=== PATIENT | male | born 1935 | race Caucasian/White ===

== ENCOUNTER 2017-08-15 17:34 | Outpatient (CLI) | payer OTHER ==
[2013-04-27 11:39] VITALS: BMI 31.6
[2017-08-15] MEDS ORDERED: VITAMIN K ORAL SOLUTION 5 MG/5 ML PO STA (18:10)
[2017-08-15] MEDS ORDERED: VITAMIN K IM STA (18:16)
== END 2017-08-15 17:35 | disposition home or self-care (01) ==
LOC: LAB 17:34 → OUTPT 17:35
PROVIDERS: ATTEND Family Medicine
DX: R79.1 Abnormal coagulation profile (principal)
CPT/HCPCS: 96372

== ENCOUNTER 2017-08-16 09:44 | Outpatient (CLI) ==
[2013-04-27 11:39] VITALS: BMI 31.6
[2017-08-16] MEDS ORDERED: VITAMIN K SUBCUT STA (10:09)
[2017-08-16 10:19] VITALS: BP 134/78; TEMP 97.9
== END 2017-08-16 10:32 | disposition home or self-care (01) ==
LOC: OPMED 09:44
PROVIDERS: ATTEND Family Medicine
DX: Z79.01 Long term (current) use of anticoagulants (principal)
CPT/HCPCS: 96372

== ENCOUNTER 2017-09-01 18:29 | Emergency (ER) ==
[2017-09-01 18:42] VITALS: BP 147/77; TEMP 98.4; BMI 40.1
[2017-09-01] MEDS ORDERED: DEMEROL 25 MG/ML VIAL IM STA (20:09)
[2017-09-01] MEDS ORDERED: ZOFRAN 4 MG/2 ML IM STA (20:09)
--- NOTE | 2017-09-01 20:12 | ED.PDOC ---
General ED Provider: Dr. ROSIE MARTINEZ Chief Complaint: Elbow Pain/Injury Stated Complaint: Patient fell at home yesterday, landed on the elbow, ever since hurting in the elbow. was not dizzi or Light headed. Time Seen by Physician: 20:10 Mode of Arrival: Walk-In Information Source: Patient Primary Care Provider: GABRIELA ALDRIDGE Nursing and Triage Documentation Reviewed and Agree: Yes Reviewed sepsis parameters & appropriate labs ordered?: No System Inflammatory Response Syndrome: Not Applicable Sepsis Protocol: For patient's 13 years and over: Temp is 96.8 and below OR 101 and greater Pulse >90 BPM Resp >20/minute Acutely Altered Mental Status Are patient's symptoms suggestive of a new infection, such as: -Pneumonia -Skin, Soft Tissue -Endocarditis -UTI -Bone, Joint Infection -Implantable Device -Acute Abdominal Infection -Wound Infection -Meningitis -Blood Stream Catheter Infection -Unknown Musculoskeletal Complaint Exam - Elbow Pain Complaint/Exam Mechanism of Injury: Reports: Trauma Symptoms Are: Still present Onset of Pain: Reports: Immediate Initial Severity: Moderate Current Severity: Moderate Location: Reports: Discrete Character: Reports: Aching, Throbbing Alleviating: Reports: None Aggravating: Reports: None Associated Signs and Symptoms: Reports: Swelling. Denies: Redness, Bruising, Fever, Weakness, Numbness, Tingling Related Surgical History: Reports: None Elbow Findings: Present: Swelling. Absent: Ecchymosis, Abnormal contour, Ligamentous instability Tenderness: Present: Lateral Condyle Limited Range of Motion: Present: Flexion, Extension, Pronation Differential Diagnoses: Closed Fracture, Sprain Review of Systems - Review Of Systems Constitutional: Reports: No symptoms Eyes: Reports: No symptoms Ears, Nose, Mouth, Throat: Reports: No symptoms Respiratory: Reports: No symptoms Cardiac: Reports: No symptoms GI: Reports: No symptoms : Reports: No symptoms Musculoskeletal: Reports: Joint pain, Joint swelling, Muscle pain Skin: Reports: No symptoms Neurological: Reports: No symptoms Endocrine: Reports: No symptoms Hematologic/Lymphatic: Reports: No symptoms All Other Systems: Reviewed and Negative Past Medical History - Past Medical History Previously Healthy: Yes Endocrine: Reports: DM 2 Cardiovascular: Reports: CAD, Hypertension, CHF Respiratory: Reports: None Hematological: Reports: None Gastrointestinal: Reports: None Genitourinary: Reports: None Neuro/Psych: Reports: None Musculoskeletal: Reports: Arthritis, Gout Cancer: Reports: None - Surgical History General 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) - Family History Family History: Reports: None - Social History Smoking Status: Never smoker Hx Substance Use: No Alcohol Screening: None Physical Exam - Physical Exam Appearance: Well-appearing, No pain distress, Well-nourished Eyes: JIMENA, EOMI, Conjunctiva clear ENT: Ears normal, Nose normal, Oropharynx normal Respiratory: Airway patent, Breath sounds clear, Breath sounds equal, Respirations nonlabored Cardiovascular: RRR, Pulses normal, No rub, No murmur GI/: Soft, Nontender, No masses, Bowel sounds normal, No Organomegaly Musculoskeletal: ROM intact, No edema, No calf tenderness, Limited ROM, Limited strength Skin: Warm, Dry, Normal color Neurological: Sensation intact, Motor intact, Reflexes intact, Cranial nerves intact, Alert, Oriented Psychiatric: Affect appropriate, Mood appropriate Interpretation - Radiology Interpretation Radiology Interpretation By: Radiologist Radiology Results: Positive (radial head fracure) Critical Care Note - Critical Care Note Total Time (mins): 25 Course - Course Orders, Labs, Meds: Orders Category Date Time Status Meperidine HCl/Pf [Demerol 25 mg/ml Vial] MEDS 09/01/17 20:09 Discontinued 25 mg IM ONCE STA Ondansetron HCl/Pf [Zofran 4 mg/2 ml] MEDS 09/01/17 20:09 Discontinued 4 mg IM ONCE STA ELBOW, RIGHT MIN 3 VIEWS Stat RADS 09/01/17 20:05 Completed FOREARM, RIGHT 2 VIEWS Stat RADS 09/01/17 20:09 Completed Medications Discontinued Medications Generic Name Dose Route Start Last Admin Trade Name Kingsleyq PRN Reason Stop Dose Admin Meperidine HCl 25 mg 09/01/17 20:09 09/01/17 20:32 Demerol 25 Mg/Ml Vial IM 09/01/17 20:10 25 mg ONCE STA Administration Ondansetron HCl 4 mg 09/01/17 20:09 09/01/17 20:31 Zofran 4 Mg/2 Ml IM 09/01/17 20:10 4 mg ONCE STA Administration Vital Signs: Temp Pulse Resp BP Pulse Ox 09/01/17 18:33 98.4 F 73 20 147/77 H 93 L Departure - Departure Time of Disposition: 21:24 Disposition: HOME SELF-CARE Discharge Problem: Radial head fracture Qualifiers: Encounter type: initial encounter Fracture type: closed Fracture alignment: nondisplaced Laterality: right Qualified Code(s): S52.124A - Nondisplaced fracture of head of right radius, initial encounter for closed fracture Instructions: Arm Fracture in Adults (ED) Condition: Stable Pt referred to PMD for follow-up: Yes IPMP verified?: No Additional Instructions: Rest needs f/u with orthopedic Prescriptions: Hydrocodone/Acetaminophen [Dupont 5-325 Tablet] 1 tab PO TID PRN #10 tablet PRN Reason: PAIN Allergies/Adverse Reactions: Allergies Sulfa (Sulfonamide Antibiotics) Adverse Reaction (Verified 09/01/17 18:43) Home Medications: Ambulatory Orders Bumetanide [Bumex] 0.5 mg PO QDAC 01/27/13 Cyanocobalamin (Vitamin B-12) [Vitamin B-12] 2,000 mcg PO DAILY 01/27/13 Docusate Sodium [Colace] 100 mg PO BID 01/27/13 Febuxostat [Uloric] 40 mg PO DAILY 01/27/13 Metoprolol Tartrate [Lopressor] 25 mg PO BID 01/27/13 Multivitamin with Minerals [Multiple Vitamin] 1 each PO BID 01/27/13 Clindamycin HCl [Cleocin] 1 cap PO Q6H 04/27/13 Pantoprazole Sodium [Protonix] 20 mg PO DAILY 04/27/13 Hydrocodone/Acetaminophen [Dupont 5-325 Tablet] 1 tab PO TID PRN #10 tablet 09/01 Lisinopril 10 mg PO DAILY 09/01/17 Metformin HCl 500 mg PO DAILY 09/01/17 Disposition Discussed With: Patient, Family
--- NOTE | 2017-09-01 21:09 | DI ---
EXAM: Three-view right elbow COMPARISON: None HISTORY: Trauma and pain FINDINGS: There is some cortical irregularity seen involving the radial head most likely due to nondi splaced fracture. True lateral was not able to be obtained. There is no dislocation. There is fair ly advanced degenerative change. There is no soft tissue swelling. No unexpected radio-opaque foreign bodies. IMPRESSION: Nondisplaced right radial head fracture.
--- NOTE | 2017-09-01 21:12 | DI ---
EXAM: Two-view right forearm COMPARISON: Elbow from today HISTORY: Trauma and pain FINDINGS: There is no distal radius or ulnar fracture identified. Redemonstrated is a nondisplaced r adial head fracture. There is advanced atherosclerotic changes. There is advanced degenerative leger e of the right elbow. There is no soft tissue swelling. No unexpected radio-opaque foreign bodies. IMPRESSION: 1. Right radial head fracture with no other fractures identified. If there is clinical concern for the wrist would recommend a wrist series.
== END 2017-09-01 22:20 | disposition home or self-care (01) ==
LOC: ED 18:29
DX: S52.124A Nondisplaced fracture of head of right radius, initial encounter for closed fracture (principal); W19.XXXA Unspecified fall, initial encounter
CPT/HCPCS: 96372; 99283

== ENCOUNTER 2022-09-03 04:30 | Inpatient (IN) ==
[2022-09-03] MEDS ORDERED: BUMEX IVP STA (05:04)
[2022-09-03 05:16] LABS: HEMATOCRIT 36.7 % (42.0-52.0); HEMOGLOBIN 11.8 g/dl (14.0-18.0); MEAN CORPUSCULAR HEMOGLOBIN 32.2 pg (27.0-31.0); MEAN CORPUSCULAR HGB CONC 32.2 (31.8-35.4); MEAN CORPUSCULAR VOLUME 100.3 fl (80.0-94.0); PLATELET COUNT 207 10^3/uL (140-440); RDW COEFFICIENT OF VARIATION 14.1 % (11.6-14.8); RED BLOOD COUNT 3.66 10^6/ul (4.70-6.10); WHITE BLOOD COUNT 24.08 K/ul (4.2-10.2)
[2022-09-03 05:17] LABS: BEecf -0.9 (-2.0-3.0); COHb 2.3 (0.5-1.5); MetHb 1.1 (0-1.5); TCO2 22.8 (19-24); sO2 93.3 % (94-98); tHb 10.6 g/dl (11.7-17.4)
--- NOTE | 2022-09-03 05:17 | ED.PDOC ---
General ED Provider: Dr. RANDY ARREOLA Chief Complaint: Respiratory Complaint Stated Complaint: barrera had a cough and sob--i recently saw dr muro Time Seen by Provider: 09/03/22 05:05 Mode of Arrival: Ambulance Information Source: Patient and EMT Exam Limitations: No limitations Primary Care Provider: GABRIELA MURO Nursing and Triage Documentation Reviewed and Agree: Yes Does patient meet sepsis criteria?: No System Inflammatory Response Syndrome: Not Applicable Sepsis Protocol: For patient's 13 years and over: Temp is 96.8 and below OR 101 and greater Pulse >90 BPM Resp >20/minute Acutely Altered Mental Status Are patient's symptoms suggestive of a new infection, such as: -Pneumonia -Skin, Soft Tissue -Endocarditis -UTI -Bone, Joint Infection -Implantable Device -Acute Abdominal Infection -Wound Infection -Meningitis -Blood Stream Catheter Infection -Unknown Respiratory Complaint Exam Respiratory Complaint/Exam Onset/Duration: a few days Symptoms Are: Still present Timing: Intermittent Initial Severity: Mild Current Severity: Mild Location: Chest Character: Reports Non-productive cough Alleviating: Reports None Associated Signs and Symptoms: Reports Dyspnea and Wheezing History of Healthcare-Acquired Pneumonia: No Related Surgical History: Reports Renal Failure Pulmonary Embolism Risk Factors: None Cardiac Risk Factors: Reports Diabetes and Hypertension Home Oxygen Use: No Recent Stress Test: No Recent Echo/LV Function: No Current Antibiotic Use: No Current Asthma Medication Use: No Respiratory Distress: None Inadequate Respiratory Effort: No Dysphagia Present: No Stridor Present: No JVD Present: No Accessory Muscle Use: No Retractions: Not Present Diminished Breath Sounds: No Sinus Tenderness: None Grunting Respirations: No Kussmaul Respirations: No Differential Diagnoses: CHF and Pulmonary Edema Non-Traumatic Chest Pain Syncope: EKG Performed Review of Systems Review Of Systems Constitutional: Reports No symptoms Eyes: Reports No symptoms Ears, Nose, Mouth, Throat: Reports No symptoms Respiratory: Reports Cough and Short of air Cardiac: Reports No symptoms GI: Reports No symptoms : Reports No symptoms Musculoskeletal: Reports No symptoms Skin: Reports No symptoms Neurological: Reports No symptoms Endocrine: Reports No symptoms Hematologic/Lymphatic: Reports No symptoms All Other Systems: Reviewed and Negative [facility] Medical History Cancer Chronic kidney disease (CKD) Diabetes Hypertension Social History Smoking and tobacco status: Never smoker Substance use type: does not use Surgical History H/O aortic valve repair Physical Exam Physical Exam Appearance: Reports Well-appearing Ill-appearing: None Pain Distress: None Eyes: Reports JIMENA, EOMI and Conjunctiva clear ENT: Reports Ears normal, Nose normal and Oropharynx normal Neck: Supple Respiratory: Reports Airway patent, Breath sounds diminished, Crackles, Rhonchi and Wheezes Cardiovascular: Reports RRR, Pulses normal and Irregular rhythm GI/: Reports Soft and Nontender Musculoskeletal: Reports Normal strength, ROM intact, No edema and No calf tenderness Skin: Reports Warm, Dry and Normal color Neurological: Reports Sensation intact, Motor intact, Reflexes intact, Cranial nerves intact, Alert and Oriented Psychiatric: Reports Affect appropriate and Mood appropriate Interpretation Radiology Interpretation Radiology Interpretation By: Radiologist Radiology Results: Positive Exam Interpreted: CT Scan EKG Interpretation Time of EKG #1: 05:17 Rate: Normal Rhythm: Other Ectopy: None ST Segment: Normal Interpretation: afib Critical Care Note Critical Care Note Total Critical Care Time (mins): 0 Course Course Hematology/Chemistry: 09/03/22 05:05 09/03/22 05:05 Orders, Labs, Meds: Lab Review 09/03/22 09/03/22 09/03/22 04:53 05:00 05:00 WBC RBC Hgb Hct MCV MCH MCHC RDW Coeff of Rickie Plt Count Neutrophils % (Manual) Lymphocytes % (Manual) Monocytes % (Manual) Anisocytosis Puncture Site Rrad Base Excess -0.9 O2 Saturation 93.3 L ABG pH 7.52 H* ABG pCO2 27.0 L ABG pO2 60.0 L ABG HCO3 22.0 ABG Total CO2 22.8 Huber Test Pos Hemoglobin 1.1 Oxyhemoglobin 93.0 L Carboxyhemoglobin 2.3 H Total Hemoglobin 10.6 L Sodium Potassium Chloride Carbon Dioxide Anion Gap BUN Creatinine Estimated GFR (MDRD) BUN/Creatinine Ratio Glucose Lactic Acid Calcium Total Bilirubin AST ALT Alkaline Phosphatase Troponin I NT-Pro-B Natriuret Pep Total Protein Albumin Globulin Albumin/Globulin Ratio Procalcitonin D-Dimer Influ A Molecular Assay Negative by naat Influ B Molecular Assay Negative by naat SARS CoV-2 RNA Rapid LEE ANN Negative 09/03/22 09/03/22 09/03/22 05:05 05:05 05:05 WBC 24.08 H RBC 3.66 L Hgb 11.8 L Hct 36.7 L MCV 100.3 H MCH 32.2 H MCHC 32.2 RDW Coeff of Rickie 14.1 Plt Count 207 Neutrophils % (Manual) 39.0 L Lymphocytes % (Manual) 60.0 H Monocytes % (Manual) 1.0 Anisocytosis Not present Puncture Site Base Excess O2 Saturation ABG pH ABG pCO2 ABG pO2 ABG HCO3 ABG Total CO2 Huber Test Hemoglobin Oxyhemoglobin Carboxyhemoglobin Total Hemoglobin Sodium 140.5 Potassium 4.15 Chloride 106.3 Carbon Dioxide 25.7 Anion Gap 12.65 BUN 27.3 H Creatinine 1.66 H Estimated GFR (MDRD) 40.00 BUN/Creatinine Ratio 16.44 Glucose 197.3 H Lactic Acid 1.14 Calcium 9.30 Total Bilirubin 0.95 AST 26.8 ALT 18.4 Alkaline Phosphatase 110.5 Troponin I 0.020 NT-Pro-B Natriuret Pep 5770 H Total Protein 6.72 Albumin 4.32 Globulin 2.40 Albumin/Globulin Ratio 1.80 Procalcitonin D-Dimer Influ A Molecular Assay Influ B Molecular Assay SARS CoV-2 RNA Rapid LEE ANN 09/03/22 09/03/22 05:05 05:05 WBC RBC Hgb Hct MCV MCH MCHC RDW Coeff of Rickie Plt Count Neutrophils % (Manual) Lymphocytes % (Manual) Monocytes % (Manual) Anisocytosis Puncture Site Base Excess O2 Saturation ABG pH ABG pCO2 ABG pO2 ABG HCO3 ABG Total CO2 Huber Test Hemoglobin Oxyhemoglobin Carboxyhemoglobin Total Hemoglobin Sodium Potassium Chloride Carbon Dioxide Anion Gap BUN Creatinine Estimated GFR (MDRD) BUN/Creatinine Ratio Glucose Lactic Acid Calcium Total Bilirubin AST ALT Alkaline Phosphatase Troponin I NT-Pro-B Natriuret Pep Total Protein Albumin Globulin Albumin/Globulin Ratio Procalcitonin < 0.05 D-Dimer 2041.93 H Influ A Molecular Assay Influ B Molecular Assay SARS CoV-2 RNA Rapid LEE ANN Orders Category Date Time Status ABG DRAW REQUEST Stat CARDIO 09/03/22 04:46 Completed EKG-(ED ONLY) Stat CARDIO 09/03/22 04:45 Completed ED RIVER RAT APPLIED .ONCE EMERGENCY 09/03/22 04:45 Active ED IV/MEDIPORT/POWERPORT .ONCE EMERGENCY 09/03/22 04:46 Active ABG COOX Stat LAB 09/03/22 04:53 Completed BLOOD CULTURE (ED ONLY) Stat LAB 09/03/22 05:05 Received CBC W/ AUTO DIFF Stat LAB 09/03/22 05:05 Completed COMPREHENSIVE METABOLIC PANEL Stat LAB 09/03/22 05:05 Completed D-DIMER Stat LAB 09/03/22 05:05 Completed FLU A/B MOLECULAR Stat LAB 09/03/22 05:00 Completed LACTIC ACID Stat LAB 09/03/22 05:05 Completed MANUAL DIFFERENTIAL Stat LAB 09/03/22 05:05 Completed NT-PROBNP(ED) Stat LAB 09/03/22 05:05 Completed PROCALCITONIN Stat LAB 09/03/22 05:05 Completed SARS COV-2 RNA RAPID LEE ANN Stat LAB 09/03/22 05:00 Completed TROPONIN I Stat LAB 09/03/22 05:05 Completed 0.9 % Sodium Chloride [Saline Flush] MEDS 09/03/22 04:45 Active 1 syr IVF PRN PRN Bumetanide [Bumex] MEDS 09/03/22 05:04 Discontinued 1 mg IVP ONCE STA Ceftriaxone/D5w 1 gm Premix [Rocephin 1 gm/50 ml D5w] MEDS 09/03/22 06:15 Active 1 gm in [address] CHEST W/O CONTRAST Stat RADS 09/03/22 05:22 Completed Medications Generic Name Dose Route Start Last Admin Trade Name Freq PRN Reason Stop Dose Admin CEFTRIAXONE/D5W 1 GM PREMIX 1 gm in 50 mls @ 75 mls/hr 09/03/22 06:15 Rocephin 1 Gm/50 Ml D5w IV 09/03/22 06:54 ONCE ONE Sodium Chloride 1 syr 09/03/22 04:45 0.9% Sodium Chloride 10 Ml Disp.Syrin IVF PRN PRN To flush IV Discontinued Medications Generic Name Dose Route Start Last Admin Trade Name Freq PRN Reason Stop Dose Admin Bumetanide 1 mg 09/03/22 05:04 09/03/22 05:09 Bumetanide 1 Mg/4 Ml Vial IVP 09/03/22 05:05 1 mg ONCE STA Administration Vital Signs: Temp Pulse Resp BP Pulse Ox 09/03/22 06:04 92 120 H 154/79 H 94 L 09/03/22 04:36 98.8 F 95 20 177/94 H 93 L Discharge Plan Discharge Patient Disposition: ADMITTED INPATIENT Discharge Problem: Pneumonia Prescriptions: No Action bumetanide 1 MG tablet 0.5 mg PO QDAC febuxostat [Uloric] 40 MG tablet 40 mg PO DAILY docusate sodium 100 MG capsule 100 mg PO BID PRN (Reason: Constipation) Multiple Vitamin-Minerals 1 EACH tablet 1 ea PO BID cyanocobalamin (vitamin B-12) [Vitamin B-12] 2,000 MCG tablet extended release 2,000 mcg PO DAILY lisinopril 10 MG tablet 20 mg PO DAILY atorvastatin 40 mg Tablet 40 mg PO QPM Onglyza 2.5 mg Tablet 2.5 mg PO DAILY metoprolol tartrate 25 mg Tablet 25 mg PO BID calcium 500 mg Tablet 500 mg PO BID aspirin [Aspir-81] 81 mg Tablet,Delayed Release (Dr/Ec) 81 mg PO DAILY pantoprazole 40 mg tablet,delayed release (DR/EC) 40 mg PO DAILY ferrous sulfate [Iron (ferrous sulfate)] 325 mg (65 mg iron) Tablet 325 mg PO DAILY magnesium 100 mg Tablet 100 mg PO BID Eliquis 2.5 mg tablet 2.5 mg PO BID Did you review [place] [employer] for ALL controlled substances?: Not Applicable ED Provider: RANDY RAM Condition: Stable Physician Progress Note: []
[2022-09-03 05:29] LABS: ALANINE AMINOTRANSFERASE 18.4 U/L (0-50); ALBUMIN 4.32 g/dL (3.5-5.0); ALKALINE PHOSPHATASE 110.5 U/L (56-119); ASPARTATE AMINO TRANSFERASE 26.8 U/L (17-59); BILIRUBIN,TOTAL 0.95 mg/dL (0.2-1.3); BLOOD UREA NITROGEN 27.3 mg/dL (9-20); CALCIUM 9.3 mg/dL (8.4-10.2); CARBON DIOXIDE 25.7 mmol/L (22-30.0); CHLORIDE 106.3 mmol/L (98-107); CREATININE 1.66 mg/dL (0.60-1.10); GLUCOSE 197.3 mg/dL (74-106); POTASSIUM 4.15 mmol/L (3.5-5.1); SODIUM 140.5 mmol/L (134.5-145); TOTAL PROTEIN 6.72 g/dL (6.3-8.2)
[2022-09-03 05:30] LABS: ANISOCYTOSIS NOT PRESENT (NOT PRESENT)
[2022-09-03 05:36] LABS: MOLECULAR FLU A NEGATIVE BY NAAT (NEGATIVE); MOLECULAR FLU B NEGATIVE BY NAAT (NEGATIVE)
[2022-09-03 05:40] LABS: TROPONIN I 0.02 ng/ml (0.0000-0.120)
[2022-09-03 05:49] LABS: ABG PH 7.52 (7.35-7.45)
[2022-09-03 05:50] LABS: SARS COV-2 RNA RAPID NAAT NEGATIVE (NEGATIVE)
--- NOTE | 2022-09-03 06:14 | CT ---
EXAM: CT OF THE CHEST WITHOUT CONTRAST History: Cough, atrial fibrillation Technique: [address] of the chest without contrast FINDINGS: Consolidative change of the left upper lobe. Small left pleural fluid. Mediastinal lymph node abundance with enlargement measuring up to 1.2 cm short axis. Bilateral axillary lymph node ab undance with borderline enlargement measuring up to 1.1 cm. No acute findings of the upper abdomen. Cholelithiasis incidentally noted. Impression: 1. Consolidative pneumonia of the left upper lobe 2. Mediastinal and axillary lymph node abundance of enlargement. No significant interval change fro m 03/29/2019. All CT scans are performed using dose optimization techniques as appropriate to the performed exam an d include at least one of the following: Automated exposure control, adjustment of the mA and/or kV according t o size, and the use of iterative reconstruction technique.
[2022-09-03] MEDS ORDERED: ROCEPHIN 1 GM/50 ML D5W 1 GM/50 ML BAG IV ONE (06:15)
[2022-09-03] MEDS ORDERED: COLACE PO PRN (06:23)
--- NOTE | 2022-09-03 06:38 | PCM ---
Chief Complaint Chief Complaint: im sob and coughing and im scared i have pneumonia History of Present Illness History of Present Illness: This is a very pleasant 86 yr old male wiht hx of CLL, dm type 2, ckd, and afib recently saw dr muro and was tx for uri symptoms. He presented to the er by ems for cough, prod of yellow sputum, and sob. he denies any fever or chills. Review of Systems Constitutional: Reports Weakness Eyes: Reports No symptoms Ears: Reports No symptoms Nose: Reports No symptoms Throat: Reports No symptoms Mouth: Reports No symptoms Respiratory: Reports Cough and Shortness of air Cardiovascular: Reports No symptoms Gastrointestinal: Reports No symptoms Genitourinary: Reports No symptoms Neurological: Reports No symptoms Musculoskeletal: Reports No symptoms Skin: Reports No symptoms Immunology: Reports No symptoms Hematology: Reports No symptoms Endocrine: Reports No symptoms Psychiatric: Reports No symptoms Habits: Denies Tobacco use, Substance use, Alcohol use or Other Allergies Allergies Allergy/AdvReac Type Severity Reaction Status Date / Time Sulfa (Sulfonamide AdvReac Rash Verified 09/03/22 06:35 Antibiotics) [facility] Medical History Cancer Chronic kidney disease (CKD) Diabetes Hypertension Surgical History H/O aortic valve repair Social History Smoking and tobacco status: Never smoker Substance use type: does not use Medications Medications: Medications Generic Name Dose Route Start Last Admin Trade Name Freq PRN Reason Stop Dose Admin Apixaban 2.5 mg 09/03/22 09:00 Apixaban 5 Mg Tab PO BID [facility] Aspirin 81 mg 09/03/22 09:00 Aspirin 81 Mg Tablet.Dr PO DAILY MAURICIO Atorvastatin Calcium 40 mg 09/03/22 17:00 Atorvastatin Calcium 20 Mg Tablet PO QPM [facility] Bumetanide 0.5 mg 09/03/22 06:30 Bumetanide 1 Mg Tablet PO QDAC [facility] Docusate Sodium 100 mg 09/03/22 06:23 Docusate Sodium 100 Mg Capsule PO BID PRN Constipation Febuxostat 40 mg 09/03/22 09:00 Febuxostat 40 Mg Tablet PO DAILY [facility] CEFTRIAXONE/D5W 1 GM PREMIX 1 gm in 50 mls @ 75 mls/hr 09/03/22 06:15 09/03/22 06:23 Rocephin 1 Gm/50 Ml D5w IV 09/03/22 06:54 75 mls/hr ONCE ONE Administration Doxycycline Hyclate 100 mg/ 100 mls @ 50 mls/hr 09/03/22 09:00 Sodium Chloride IV 09/06/22 08:59 Q12HR MAURICIO Insulin Human Regular 0 unit 09/03/22 06:25 Insulin Regular, Human 100 Unit/Ml (3ml) Vial SUBCUT PRN PRN Hyperglycemia Protocol Ipratropium Zoar 2.5 ml 09/03/22 12:00 Ipratropium Zoar 0.02% Vial.Neb NEB Q6HR MAURICIO Levalbuterol HCl 1.25 mg 09/03/22 12:00 Levalbuterol Hcl 1.25 Mg/3 Ml Vial.Neb NEB RTQ6H MAURICIO Lisinopril 20 mg 09/03/22 09:00 Lisinopril 10 Mg Tablet PO DAILY MAURICIO Metoprolol Tartrate 25 mg 09/03/22 09:00 Metoprolol Tartrate 25 Mg Tablet PO BID MAURICIO Non-Formulary Medication 325 mg 09/03/22 09:00 Ferrous Sulfate [Iron (Ferrous Sulfate)] PO DAILY MAURICIO Non-Formulary Medication 500 mg 09/03/22 09:00 Calcium PO BID MAURICIO Non-Formulary Medication 100 mg 09/03/22 09:00 Magnesium PO BID MAURICIO Non-Formulary Medication 2,000 mcg 09/03/22 09:00 Cyanocobalamin (Vitamin B-12) [Vitamin B-12] PO DAILY [facility] Non-Formulary Medication 1 each 09/03/22 09:00 Multivitamin With Minerals [Multiple Vitamin-Minerals] PO BID MAURICIO Pantoprazole Sodium 40 mg 09/03/22 09:00 Pantoprazole Sodium 40 Mg Tablet.Dr PO DAILY MAURICIO Saxagliptin Hydrochloride 2.5 mg 09/03/22 09:00 Saxagliptin Hcl 5 Mg Tablet PO DAILY [facility] Sodium Chloride 1 syr 09/03/22 04:45 0.9% Sodium Chloride 10 Ml Disp.Syrin IVF PRN PRN To flush IV Body Composition Height: 5 ft 11 in Weight: 260 lb 2.327 oz Body Mass Index (BMI): 36.3 Vital Signs Temperature: 98.8 F Pulse Rate: 92 Respiratory Rate: 120 Blood Pressure: 154/79 O2 Sat by Pulse Oximetry: 94 Physical Examination Appearance: Reports Ill-appearing Ill-appearing: Mild Pain Distress: None Eyes: Reports JIMENA, EOMI and Conjunctiva clear ENT: Reports Ears normal, Nose normal and Oropharynx normal Neck: Supple Respiratory: Reports Airway patent, Crackles and Rhonchi Cardiovascular: Reports RRR, Pulses normal and Irregular rhythm GI/: Reports Soft, Nontender, No masses and Bowel sounds normal Musculoskeletal: Reports Normal strength, ROM intact, No edema and No calf tenderness Skin: Reports Warm, Dry and Normal color Neurological: Reports Sensation intact, Motor intact, Reflexes intact, Cranial nerves intact, Alert and Oriented Psychiatric: Reports Affect appropriate and Mood appropriate Lab/Tests/Diagnostic Imaging Lab/Tests/Diagnostic Imaging: Lab Review 09/03/22 09/03/22 09/03/22 04:53 05:00 05:00 WBC RBC Hgb Hct MCV MCH MCHC RDW Coeff of Rickie Plt Count Neutrophils % (Manual) Lymphocytes % (Manual) Monocytes % (Manual) Anisocytosis Puncture Site Rrad Base Excess -0.9 O2 Saturation 93.3 L ABG pH 7.52 H* ABG pCO2 27.0 L ABG pO2 60.0 L ABG HCO3 22.0 ABG Total CO2 22.8 Huber Test Pos Hemoglobin 1.1 Oxyhemoglobin 93.0 L Carboxyhemoglobin 2.3 H Total Hemoglobin 10.6 L Sodium Potassium Chloride Carbon Dioxide Anion Gap BUN Creatinine Estimated GFR (MDRD) BUN/Creatinine Ratio Glucose Lactic Acid Calcium Total Bilirubin AST ALT Alkaline Phosphatase Troponin I NT-Pro-B Natriuret Pep Total Protein Albumin Globulin Albumin/Globulin Ratio Procalcitonin D-Dimer Influ A Molecular Assay Negative by naat Influ B Molecular Assay Negative by naat SARS CoV-2 RNA Rapid LEE ANN Negative 09/03/22 09/03/22 09/03/22 05:05 05:05 05:05 WBC 24.08 H RBC 3.66 L Hgb 11.8 L Hct 36.7 L MCV 100.3 H MCH 32.2 H MCHC 32.2 RDW Coeff of Rickie 14.1 Plt Count 207 Neutrophils % (Manual) 39.0 L Lymphocytes % (Manual) 60.0 H Monocytes % (Manual) 1.0 Anisocytosis Not present Puncture Site Base Excess O2 Saturation ABG pH ABG pCO2 ABG pO2 ABG HCO3 ABG Total CO2 Huber Test Hemoglobin Oxyhemoglobin Carboxyhemoglobin Total Hemoglobin Sodium 140.5 Potassium 4.15 Chloride 106.3 Carbon Dioxide 25.7 Anion Gap 12.65 BUN 27.3 H Creatinine 1.66 H Estimated GFR (MDRD) 40.00 BUN/Creatinine Ratio 16.44 Glucose 197.3 H Lactic Acid 1.14 Calcium 9.30 Total Bilirubin 0.95 AST 26.8 ALT 18.4 Alkaline Phosphatase 110.5 Troponin I 0.020 NT-Pro-B Natriuret Pep 5770 H Total Protein 6.72 Albumin 4.32 Globulin 2.40 Albumin/Globulin Ratio 1.80 Procalcitonin D-Dimer Influ A Molecular Assay Influ B Molecular Assay SARS CoV-2 RNA Rapid LEE ANN 09/03/22 09/03/22 05:05 05:05 WBC RBC Hgb Hct MCV MCH MCHC RDW Coeff of Rickie Plt Count Neutrophils % (Manual) Lymphocytes % (Manual) Monocytes % (Manual) Anisocytosis Puncture Site Base Excess O2 Saturation ABG pH ABG pCO2 ABG pO2 ABG HCO3 ABG Total CO2 Huber Test Hemoglobin Oxyhemoglobin Carboxyhemoglobin Total Hemoglobin Sodium Potassium Chloride Carbon Dioxide Anion Gap BUN Creatinine Estimated GFR (MDRD) BUN/Creatinine Ratio Glucose Lactic Acid Calcium Total Bilirubin AST ALT Alkaline Phosphatase Troponin I NT-Pro-B Natriuret Pep Total Protein Albumin Globulin Albumin/Globulin Ratio Procalcitonin < 0.05 D-Dimer 2041.93 H Influ A Molecular Assay Influ B Molecular Assay SARS CoV-2 RNA Rapid LEE ANN Orders Category Date Time Status ADMIT PATIENT INPATIENT .TO [facility] (MONITORED BED) ADMISSION 09/03/22 06:19 Active ABG DRAW REQUEST Stat CARDIO 09/03/22 04:46 Completed EKG-(ED ONLY) Stat CARDIO 09/03/22 04:45 Completed NEBULIZER TREATMENT Routine CARDIO 09/03/22 06:22 Ordered NEBULIZER TREATMENT Stat CARDIO 09/03/22 06:22 Ordered OXYGEN Routine CARDIO 09/03/22 06:20 Ordered ACTIVITY .Up in Chair CARE 09/03/22 06:20 Active BLOOD GLUCOSE MONITORING (MED/SURG) 0630,1100,1700,2100 CARE 09/03/22 06:21 Active GIVE HS SNACK 2100 CARE 09/03/22 06:20 Active INTAKE & OUTPUT Q8HR CARE 09/03/22 06:20 Active IP: INSERT SALINE LOCK ONCE CARE 09/03/22 06:20 Active TELEMETRY MONITORING TELE CARE 09/03/22 06:19 Active VITAL SIGNS Q8HR CARE 09/03/22 06:20 Active ADA 1800 DREW. DIET DIETARY 09/03/22 Breakfast Ordered HS SNACK DIETARY 09/03/22 Dinner Ordered ED QUOTER APPLIED .ONCE EMERGENCY 09/03/22 04:45 Active ED IV/MEDIPORT/POWERPORT .ONCE EMERGENCY 09/03/22 04:46 Active ABG COOX Stat LAB 09/03/22 04:53 Completed BASIC METABOLIC PANEL DAILY@0600 LAB 09/04/22 06:00 Ordered BASIC METABOLIC PANEL DAILY@0600 LAB 09/05/22 06:00 Ordered BLOOD CULTURE (ED ONLY) Stat LAB 09/03/22 05:05 Received CBC W/ AUTO DIFF DAILY@0600 LAB 09/04/22 06:00 Ordered CBC W/ AUTO DIFF DAILY@0600 LAB 09/05/22 06:00 Ordered CBC W/ AUTO DIFF Stat LAB 09/03/22 05:05 Completed COMPREHENSIVE METABOLIC PANEL Stat LAB 09/03/22 05:05 Completed D-DIMER Stat LAB 09/03/22 05:05 Completed FLU A/B MOLECULAR Stat LAB 09/03/22 05:00 Completed LACTIC ACID Stat LAB 09/03/22 05:05 Completed MANUAL DIFFERENTIAL Stat LAB 09/03/22 05:05 Completed NT-PROBNP(ED) Stat LAB 09/03/22 05:05 Completed PROCALCITONIN Stat LAB 09/03/22 05:05 Completed SARS COV-2 RNA RAPID LEE ANN Stat LAB 09/03/22 05:00 Completed TROPONIN I Stat LAB 09/03/22 05:05 Completed 0.9 % Sodium Chloride [Saline Flush] MEDS 09/03/22 04:45 Active 1 syr IVF PRN PRN Apixaban [Eliquis] MEDS 09/03/22 09:00 Ordered 2.5 mg PO BID Aspirin [Aspirin EC] MEDS 09/03/22 09:00 Ordered 81 mg PO DAILY Atorvastatin Calcium [Lipitor] MEDS 09/03/22 17:00 Ordered 40 mg PO QPM Bumetanide [Bumex] MEDS 09/03/22 06:30 Ordered 0.5 mg PO QDAC Bumetanide [Bumex] MEDS 09/03/22 05:04 Discontinued 1 mg IVP ONCE STA Ceftriaxone/D5w 1 gm Premix [Rocephin 1 gm/50 ml D5w] MEDS 09/03/22 06:15 Active 1 gm in 50 ml IV ONCE Docusate Sodium [Colace] MEDS 09/03/22 06:23 Ordered 100 mg PO BID PRN Doxycycline Hyclate Inj [Doxy-100] 100 mg MEDS 09/03/22 09:00 Ordered 0.9 % Sodium Chloride [Sodium Chloride 100Ml] 100 ml IV Q12HR Febuxostat [Uloric] MEDS 09/03/22 09:00 Ordered 40 mg PO DAILY Insulin Regular, Human [Humulin R] MEDS 09/03/22 06:25 Ordered See Protocol SUBCUT PRN PRN Ipratropium Zoar 0.02% Neb [Atrovent 0.02% Neb] MEDS 09/03/22 12:00 Ordered 2.5 ml NEB Q6HR Levalbuterol HCl [Xopenex 1.25 mg] MEDS 09/03/22 12:00 Ordered 1.25 mg NEB RTQ6H Lisinopril [Zestril] MEDS 09/03/22 09:00 Ordered 20 mg PO DAILY Metoprolol Tartrate [Lopressor] MEDS 09/03/22 09:00 Ordered 25 mg PO BID Pantoprazole Sodium [Protonix] MEDS 09/03/22 09:00 Ordered 40 mg PO DAILY Saxagliptin HCl [Onglyza] MEDS 09/03/22 09:00 Ordered 2.5 mg PO DAILY calcium MEDS 09/03/22 09:00 Ordered 500 mg PO BID cyanocobalamin (vitamin B-12) [Vitamin B-12] MEDS 09/03/22 09:00 Ordered 2,000 mcg PO DAILY ferrous sulfate [Iron (ferrous sulfate)] MEDS 09/03/22 09:00 Ordered 325 mg PO DAILY magnesium MEDS 09/03/22 09:00 Ordered 100 mg PO BID multivitamin with minerals [Multiple Vitamin-Minerals] MEDS 09/03/22 09:00 Ordered 1 each PO BID RESUSCITATION STATUS Routine OTHERS 09/03/22 06:[address] CHEST W/O CONTRAST Stat RADS 09/03/22 05:22 Completed Medications Generic Name Dose Route Start Last Admin Trade Name Freq PRN Reason Stop Dose Admin Apixaban 2.5 mg 09/03/22 09:00 Apixaban 5 Mg Tab PO BID [facility] Aspirin 81 mg 09/03/22 09:00 Aspirin 81 Mg Tablet.Dr PO DAILY [facility] Atorvastatin Calcium 40 mg 09/03/22 17:00 Atorvastatin Calcium 20 Mg Tablet PO QPM [facility] Bumetanide 0.5 mg 09/03/22 06:30 Bumetanide 1 Mg Tablet PO QDAC [facility] Docusate Sodium 100 mg 09/03/22 06:23 Docusate Sodium 100 Mg Capsule PO BID PRN Constipation Febuxostat 40 mg 09/03/22 09:00 Febuxostat 40 Mg Tablet PO DAILY MAURICIO CEFTRIAXONE/D5W 1 GM PREMIX 1 gm in 50 mls @ 75 mls/hr 09/03/22 06:15 09/03/22 06:23 Rocephin 1 Gm/50 Ml D5w IV 09/03/22 06:54 75 mls/hr ONCE ONE Administration Doxycycline Hyclate 100 mg/ 100 mls @ 50 mls/hr 09/03/22 09:00 Sodium Chloride IV 09/06/22 08:59 Q12HR [facility] Insulin Human Regular 0 unit 09/03/22 06:25 Insulin Regular, Human 100 Unit/Ml (3ml) Vial SUBCUT PRN PRN Hyperglycemia Protocol Ipratropium Zoar 2.5 ml 09/03/22 12:00 Ipratropium Zoar 0.02% Vial.Neb NEB Q6HR [facility] Levalbuterol HCl 1.25 mg 09/03/22 12:00 Levalbuterol Hcl 1.25 Mg/3 Ml Vial.Neb NEB RTQ6H [facility] Lisinopril 20 mg 09/03/22 09:00 Lisinopril 10 Mg Tablet PO DAILY [facility] Metoprolol Tartrate 25 mg 09/03/22 09:00 Metoprolol Tartrate 25 Mg Tablet PO BID [facility] Non-Formulary Medication 325 mg 09/03/22 09:00 Ferrous Sulfate [Iron (Ferrous Sulfate)] PO DAILY [facility] Non-Formulary Medication 500 mg 09/03/22 09:00 Calcium PO BID [facility] Non-Formulary Medication 100 mg 09/03/22 09:00 Magnesium PO BID [facility] Non-Formulary Medication 2,000 mcg 09/03/22 09:00 Cyanocobalamin (Vitamin B-12) [Vitamin B-12] PO DAILY [facility] Non-Formulary Medication 1 each 09/03/22 09:00 Multivitamin With Minerals [Multiple Vitamin-Minerals] PO BID MAURICIO Pantoprazole Sodium 40 mg 09/03/22 09:00 Pantoprazole Sodium 40 Mg Tablet.Dr PO DAILY MAURICIO Saxagliptin Hydrochloride 2.5 mg 09/03/22 09:00 Saxagliptin Hcl 5 Mg Tablet PO DAILY MAURICIO Sodium Chloride 1 syr 09/03/22 04:45 0.9% Sodium Chloride 10 Ml Disp.Syrin IVF PRN PRN To flush IV Discontinued Medications Generic Name Dose Route Start Last Admin Trade Name Freq PRN Reason Stop Dose Admin Bumetanide 1 mg 09/03/22 05:04 09/03/22 05:09 Bumetanide 1 Mg/4 Ml Vial IVP 09/03/22 05:05 1 mg ONCE STA Administration Assessment (1) Pneumonia: Status: Acute Code(s): J18.9 - Pneumonia, unspecified organism SNOMED Code(s): 341791359 Plan Plan: iv antbx, neb tx, oxygenation, monitor labs, monitor fsbs DNR
[2022-09-03 08:44] VITALS: BMI 35.6
[2022-09-03] MEDS ORDERED: [UNRECOGNIZED DRUG - OTHER] PO SCH (09:00)
[2022-09-03] MEDS ORDERED: MULTIVITAMIN WITH MINERALS PO SCH (09:00)
[2022-09-03] MEDS ORDERED: NON-FORMULARY MEDICATION (Calcium 500 mg Tablet) PO SCH (09:00)
[2022-09-03] MEDS ORDERED: NON-FORMULARY MEDICATION (Ferrous Sulfate [Iron (Ferrous Sulfate)] 325 mg (65 mg iron) Tab PO SCH (09:00)
[2022-09-03] MEDS: BUMEX PO SCH (09:48)
[2022-09-03] MEDS: ELIQUIS PO SCH ×2 (10:05→20:22)
[2022-09-03] MEDS: ASPIRIN EC PO SCH (10:05)
[2022-09-03] MEDS: LOPRESSOR PO SCH ×2 (10:05→20:21)
[2022-09-03] MEDS: ONGLYZA PO SCH (10:07)
[2022-09-03] MEDS: MULTIVITAMIN TABLET PO SCH (10:08)
[2022-09-03] MEDS: FERROUS SULFATE PO SCH (10:09)
[2022-09-03] MEDS: ULORIC PO SCH (10:09)
[2022-09-03] MEDS: PROTONIX PO SCH (10:10)
[2022-09-03] MEDS: ZESTRIL PO SCH (10:10)
[2022-09-03] MEDS: CALCIUM 500 + VIT D 5 MCG (200 IU) TABLET PO SCH ×2 (10:10→20:21)
[2022-09-03] MEDS: DOXY-100 100 MG in SODIUM CHLORIDE 100ML 100 ML IV SCH ×2 (10:14→20:21)
[2022-09-03] MEDS: CYANOCOBALAMIN 2000 MCG PO SCH (10:20)
[2022-09-03] MEDS: [UNRECOGNIZED DRUG - OTHER] PO SCH (10:20)
[2022-09-03] MEDS: NON-FORMULARY MEDICATION (Magnesium 100 mg Tablet) PO SCH ×2 (10:21→20:22)
[2022-09-03] MEDS: HUMULIN R SUBCUT PRN ×3 (11:24→21:25)
[2022-09-03] MEDS: XOPENEX 1.25 MG NEB SCH ×2 (11:25→17:00)
[2022-09-03] MEDS: ATROVENT 0.02% NEB NEB SCH ×2 (11:25→17:00)
[2022-09-03] MEDS: LIPITOR PO SCH (16:52)
[2022-09-04] MEDS: XOPENEX 1.25 MG NEB SCH ×5 (00:05→22:50)
[2022-09-04] MEDS: ATROVENT 0.02% NEB NEB SCH ×5 (04:30→22:50)
[2022-09-04 05:29] LABS: BASOPHILS # (AUTO) 0.1 K/uL (0-0.2); BASOPHILS % (AUTO) 0.2 % (0.0-3.0); EOSINOPHILS % (AUTO) 0.1 % (0.0-7.0); HEMATOCRIT 33.1 % (42.0-52.0); HEMOGLOBIN 10.8 g/dl (14.0-18.0); IMMATURE GRANULOCYTE # (AUTO) 0.3 (0.0-1.0); IMMATURE GRANULOCYTE % (AUTO) 0.9 % (0.0-5.0); LYMPHOCYTES # (AUTO) 13.6 K/uL (0.60-3.4); LYMPHOCYTES % (AUTO) 51.2 (10.0-50.0); MEAN CORPUSCULAR HEMOGLOBIN 32.2 pg (27.0-31.0); MEAN CORPUSCULAR HGB CONC 32.6 (31.8-35.4); MEAN CORPUSCULAR VOLUME 98.8 fl (80.0-94.0); MONOCYTES # (AUTO) 1.1 K/uL (0.4-2.0); MONOCYTES % (AUTO) 4.3 (0-10); NEUTROPHILS # (AUTO) 11.5 K/ul (2.0-6.9); NEUTROPHILS % (AUTO) 43.3 % (42.2-75.2); PLATELET COUNT 168 10^3/uL (140-440); RDW COEFFICIENT OF VARIATION 14.4 % (11.6-14.8); RED BLOOD COUNT 3.35 10^6/ul (4.70-6.10); WHITE BLOOD COUNT 26.48 K/ul (4.2-10.2)
[2022-09-04 05:47] LABS: BLOOD UREA NITROGEN 40.2 mg/dL (9-20); CALCIUM 8.81 mg/dL (8.4-10.2); CARBON DIOXIDE 24.8 mmol/L (22-30.0); CHLORIDE 104.2 mmol/L (98-107); CREATININE 2.23 mg/dL (0.60-1.10); GLUCOSE 122.6 mg/dL (74-106); POTASSIUM 3.48 mmol/L (3.5-5.1); SODIUM 138.1 mmol/L (134.5-145)
[2022-09-04] MEDS: PROTONIX PO SCH (05:54)
[2022-09-04] MEDS: BUMEX PO SCH (05:54)
[2022-09-04] MEDS: DOXY-100 100 MG in SODIUM CHLORIDE 100ML 100 ML IV SCH ×2 (09:08→21:06)
[2022-09-04] MEDS: ONGLYZA PO SCH (09:08)
[2022-09-04] MEDS: LOPRESSOR PO SCH ×2 (09:09→21:06)
[2022-09-04] MEDS: MULTIVITAMIN TABLET PO SCH (09:09)
[2022-09-04] MEDS: ULORIC PO SCH (09:09)
[2022-09-04] MEDS: CALCIUM 500 + VIT D 5 MCG (200 IU) TABLET PO SCH ×2 (09:09→21:06)
[2022-09-04] MEDS: ZESTRIL PO SCH (09:09)
[2022-09-04] MEDS: ASPIRIN EC PO SCH (09:09)
[2022-09-04] MEDS: ELIQUIS PO SCH ×2 (09:09→21:07)
[2022-09-04] MEDS: FERROUS SULFATE PO SCH (09:10)
[2022-09-04] MEDS: NON-FORMULARY MEDICATION (Magnesium 100 mg Tablet) PO SCH ×2 (09:10→20:06)
[2022-09-04] MEDS: CYANOCOBALAMIN 2000 MCG PO SCH (09:10)
[2022-09-04] MEDS: [UNRECOGNIZED DRUG - OTHER] PO SCH (09:10)
--- NOTE | 2022-09-04 09:46 | RS.OTINEVL ---
Subjective - Patient information Date of Evaluation: 09/04/22 Date of Arrival on Unit: 09/03/22 Admitted From:: Facility Transfer Diagnosis: Community acquired pneumonia PRECAUTIONS: Fall precautions, SOA, Usual Living Arrangement: With Spouse Living Arrangement Comments: LIVES WITH Home Environment: House Medical History: Diabetes, CHF, Arthritis Medical History Comments:: Leukemia (not being treated), History of Prostate Cancer, CKD LATEX ALLERGY?: No Surgical History: Knee Replacement Surgical History Comments:: Left TKA, Right TKA (3 surgeries) Subjective Information/ Patient Comments:: "I can't move the right shoulder. I hurt it years ago." - Level of function Prior to this admission, the patient could do the following:: Independent Renetta fcare, Independent ADL's, Independent Ambulation, Participated in Social Activities Outside home Abilities prior to this admission: Pt reported he was able to don his socks while sitting on the EOB but he cannot do it here because the bed is too tall. Pt reports he walks with a straight cane. Pt is not steady on his feet and would ambulate safer with a RW. Current Level of Function: Partially Dependent Current Equipment Used at Home: CANE, WALKER, GLUCOMETER Pain Assessment - Pain Pain Alleviating Factors: Position Change Interventions - Objective Patient Orientation: Person, Place, Situation Current Interventions: Oxygen Observation: Pt is wheezing and weak. Pt is not steady with functional transfers. Pt would be more safe with a RW. Pt has limited RUE AROM due to and injury years ago. Interventions - ROM Right Upper Extremity AROM: Marked limitation Left Upper Extremity AROM: WFL's - Strength Right Upper Extremity Strength: Severe Weakness Left Upper Extremity Strength: Normal - Sensation Right Upper Extremity Sensation: Intact/Normal Left Upper Extremity Sensation: Intact/Normal Balance - Sitting Balance Static Sitting Balance: Good Dynamic Sitting Balance: Good - Standing Balance Static Standing Balance: Poor Dynamic Standing Balance: Poor ADL Skills - Self Feeding Self Feeding: Independent - Grooming Grooming: CGA, 1 person assist - Dressing Dressing UE: Min Assist Dressing LE: Max Assist - Toilet Management Toilet Hygiene: Independent Toilet Clothing Management: Min Assist (Pt reports he could not don his socks this morning. ) Functional Mobility - Bed Mobility Rolling R/L: CGA Supine to Sit: CGA - Transfers Sit to Stand: CGA Stand to Sit: [facility] Stand Pivot Transfers: CGA - Ambulation Weight Bearing Status: FWB Assistive Device Used: Rolling Walker Assistance needed with Ambulation: CGA, 1 person assist - Safety Awareness Safety Awareness: Fair VINEET INDEX SCORE: . Additional Treatment Performed - Time with patient Length of Evaluation: 17 Total treatment time: 17 Activities Would you be interested in leaving your room for activities?: Yes Would you enjoy group activities?: Yes Do you have difficulty with your vision?: Yes Patient Interests:: Watching Television Comments:: Pt [place] and tilts his glasses to see. Patient Education Patient Education: Home Safety, Education of Plan of Care Teaching Recipient: Patient Teaching Methods: Discussion, Demonstration Assessment Problem List:: Decreased level of function, Requires training/education, Decreased safety/Risk of falls, Weakness Rehab Potential: Good Further Therapy Indicated?: Yes Evaluation Complexity: HISTORY: Medium, EXAM OF BODY SYSTEMS: Medium, CLINICAL DECISION MAKING: Medium Patient's Goal(s): To get stronger and be able to go back home and to mosque. Short Term Goals - Goals GOAL 1: Pt to increase to Moderate assistance with BLE dressing. Goal to be met by: 09/07/22 GOAL 2: Pt to increase to CGA for toilet transfers. Goal to be met by: 09/07/22 GOAL 3: Pt to increase dyn. std. bal. to Fair+. Goal to be met by: 09/07/22 GOAL 4: Pt to be CGA with sink level ADLS. Goal to be met by: 09/07/22 Retirement Goals GOAL 1: Pt to be (I) with ADLs. Goal to be met by: 09/09/22 GOAL 2: Pt to increase dyn. std. bal. to G-. Goal to be met by: 09/09/22 GOAL 3: Pt to increase toilet transfers to (I). Goal to be met by: 09/09/22 Plan Plan of Care: Therapeutic EX, Therapeutic Activity, Self-Care/Home Management Frequency of Treatment: 1-2 X day, as tolerated Duration of Treatment: 1 Week Anticipated Discharge Destination: Home Treatment Diagnosis (ICD 10 Codes): R53.1 Weakness, Z74.1 Need for assistance with personal care. Has the Physician been added for Co-signature?: Yes
--- NOTE | 2022-09-04 10:08 | RS.PTINEVL ---
Subjective - Patient information Date of Evaluation: 09/04/22 Date of Arrival on Unit: 09/03/22 Admitted From:: Home Diagnosis: pneumonia Usual Living Arrangement: With Spouse Home Environment: House, Stairs (few), Rail, Ramp Medical History: Hypertension, Diabetes, Arthritis, Cancer (CLL) Medical History Comments:: AFib, chronic kidney disease Surgical History Comments:: aortic valve repair Medications: see chart Subjective Information/ Patient Comments:: pt states that he is waiting for his to bring in his breakfast. pt reports that he is feeling a little better today. - Level of function Prior to this admission, the patient could do the following:: Independent Selfcare, Independent ADL's, Independent Ambulation, Participated in Social Activities Outside home Current Level of Function: Partially Dependent Current Equipment Used at Home: cane, rolling walker, glucometer Interventions - Objective Patient Orientation: Person, Place, Time, Situation Current Interventions: IV's, Oxygen (2 liters), Telemetry Observation: pt with edema BLE. Range of Motion - ROM Right Upper Extremity AROM: Slight limitation (limited shld ROM) Left Upper Extremity AROM: WFL's Right Lower Extremity AROM: WFL's Left Lower Extremity AROM: WFL's Muscle Strength - Muscle Strength Right Upper Extremity Strength: Mild Weakness (shld flex 4-/5, elbow flex/ext 4/5) Left Upper Extremity Strength: Mild Weakness (grossly 4/5) Right Lower Extremity Strength: Mild Weakness (hip flex 3+/5, knee flex/ext 4/5, ankle Df/PF 4/5) Left Lower Extremity Strength: Mild Weakness (hip flex 4-/5, knee flex/ext 4+/5, ankle DF/PF 4+/5) Sensation - Sensation Right Upper Extremity Sensation: Intact/Normal Left Upper Extremity Sensation: Intact/Normal Right Lower Extremity Sensation: Intact/Normal Left Lower Extremity Sensation: Intact/Normal Palpation Palpation Findings: None/Normal Balance - Sitting Balance and Reactions Static Sitting Balance: Good Dynamic Sitting Balance: Fair - Standing Balance and Reactions Static Standing Balance: Poor Dynamic Standing Balance: Poor Standing Equilibrium Reactions: Delayed Left, Delayed Right Standing Protective Reactions: Delayed Left, Delayed Right Functional Mobility - Bed Mobility Supine to Sit: CGA - Transfers Sit to Stand: Min Assist Stand to Sit: Min Assist - Safety Awareness Safety Awareness: Fair VINEET INDEX SCORE: n/a Ambulation - Ambulation Assistive Device Used: Straight Cane Orthotic/Prosthetic Device: No Distance: 5 steps Assistance needed with Ambulation: Min Assist, 1 person assist, 2 person assist Quality of Ambulation: Feel pt would benefit from use of rwx for safety Gait Deviations: Wide Based gait, Step-to gait, Forward posture, Short stride Factors Affecting Ambulation: Decreased Balance, Weakness, Decreased ROM, Decreased Safety, Limited Endurance Treatment time - Time with patient Length of Evaluation: 21 Total treatment time: 28 Patient Education - Education Patient Education: Home Exercise Program, Education of Plan of Care Teaching Recipient: Patient Teaching Methods: Discussion Comments: discussion regarding POC and home safety Assessment - Assessment Problem List:: Decreased level of function, Requires training/education, Decreased safety/Risk of falls, Weakness Rehab Potential: Good Further Therapy Indicated?: Yes Candidate for Swing Bed for Therapy Services?: Would need to reassess at a later time to determine Evaluation Complexity: HISTORY: Medium, EXAM OF BODY SYSTEMS: Medium, CLINICAL PRESENTATION: Medium, CLINICAL DECISION MAKING: Medium Patient's Goal(s): Get stronger and go home Short Term Goals GOAL #1: pt independent with rolling and scooting in bed. Goal to be met by: 09/06/22 GOAL #2: Transfers sup to/from sit SBA Goal to be met by: 09/06/22 GOAL #3: Transfer sit to/from stand CGA Goal to be met by: 09/06/22 GOAL #4: pt amb with rwx 100ft with CGA x 1. Goal to be met by: 09/06/22 GOAL #5: Improve strength BLE 4 to 4+/5 Goal to be met by: 09/06/22 Astro Technician Goals GOAL #1: Transfer sup to/from sit to/from stand independently. Goal to be met by: 09/08/22 GOAL #2: pt amb with rwx functional household distances SBA Goal to be met by: 09/08/22 GOAL #3: Improve dyn stand balance fair Goal to be met by: 09/08/22 Plan Plan of Care: Therapeutic EX, Therapeutic Activity Other:: gait training Frequency of Treatment: 1-2 X day, as tolerated Duration of Treatment: 5 days Anticipated Discharge Destination: Home Treatment Diagnosis (ICD 10 Codes): impaired balance R 26.81. gait difficulty R 26.2. weakness M62.81 Has the Physician been added for Co-signature?: Yes
[2022-09-04] MEDS: HUMULIN R SUBCUT PRN ×2 (12:15→21:07)
[2022-09-04] MEDS ORDERED: K-DUR PO SCH (12:23)
[2022-09-04] MEDS: ROCEPHIN 1 GM/50 ML D5W 1 GM/50 ML BAG IV SCH (12:30)
[2022-09-04] MEDS: MICRO-K CAP PO SCH (12:31)
[2022-09-04] MEDS: LIPITOR PO SCH (17:27)
[2022-09-04] MEDS ORDERED: ROBITUSSIN SUGAR-FREE PO ONE (22:14)
[2022-09-05] MEDS: ATROVENT 0.02% NEB NEB SCH ×4 (04:45→22:30)
[2022-09-05] MEDS: XOPENEX 1.25 MG NEB SCH ×4 (04:45→22:30)
[2022-09-05 05:37] LABS: BLOOD UREA NITROGEN 46.6 mg/dL (9-20); CALCIUM 8.53 mg/dL (8.4-10.2); CARBON DIOXIDE 24.7 mmol/L (22-30.0); CHLORIDE 104.4 mmol/L (98-107); CREATININE 2.37 mg/dL (0.60-1.10); GLUCOSE 152.5 mg/dL (74-106); POTASSIUM 3.44 mmol/L (3.5-5.1)
[2022-09-05] MEDS: BUMEX PO SCH (05:46)
[2022-09-05] MEDS: PROTONIX PO SCH (05:46)
[2022-09-05] MEDS: HUMULIN R SUBCUT PRN ×3 (05:48→17:15)
[2022-09-05] MEDS: ZESTRIL PO SCH (08:00)
[2022-09-05] MEDS: LOPRESSOR PO SCH ×2 (08:00→20:23)
[2022-09-05] MEDS: ASPIRIN EC PO SCH (08:00)
[2022-09-05] MEDS: CALCIUM 500 + VIT D 5 MCG (200 IU) TABLET PO SCH ×2 (08:00→20:22)
[2022-09-05] MEDS: MICRO-K CAP PO SCH (08:01)
[2022-09-05] MEDS: FERROUS SULFATE PO SCH (08:01)
[2022-09-05] MEDS: ELIQUIS PO SCH ×2 (08:01→20:23)
[2022-09-05] MEDS: ONGLYZA PO SCH (08:01)
[2022-09-05] MEDS: ULORIC PO SCH (08:01)
[2022-09-05] MEDS: ROCEPHIN 1 GM/50 ML D5W 1 GM/50 ML BAG IV SCH (08:05)
[2022-09-05] MEDS: MULTIVITAMIN TABLET PO SCH (08:06)
[2022-09-05] MEDS: [UNRECOGNIZED DRUG - OTHER] PO SCH (08:48)
[2022-09-05] MEDS: CYANOCOBALAMIN 2000 MCG PO SCH (08:48)
[2022-09-05] MEDS: NON-FORMULARY MEDICATION (Magnesium 100 mg Tablet) PO SCH ×2 (08:49→20:22)
[2022-09-05] MEDS: DOXY-100 100 MG in SODIUM CHLORIDE 100ML 100 ML IV SCH ×2 (09:54→20:22)
[2022-09-05] MEDS ORDERED: ROBITUSSIN SUGAR-FREE PO ONE (11:29)
[2022-09-05] MEDS: LIPITOR PO SCH (17:15)
[2022-09-06] MEDS: XOPENEX 1.25 MG NEB SCH ×4 (04:40→22:30)
[2022-09-06] MEDS: ATROVENT 0.02% NEB NEB SCH ×4 (04:40→22:30)
[2022-09-06 05:18] LABS: BLOOD UREA NITROGEN 46.6 mg/dL (9-20); CALCIUM 8.97 mg/dL (8.4-10.2); CARBON DIOXIDE 24.4 mmol/L (22-30.0); CHLORIDE 106.5 mmol/L (98-107); CREATININE 2.13 mg/dL (0.60-1.10); GLUCOSE 157.1 mg/dL (74-106); POTASSIUM 3.47 mmol/L (3.5-5.1); SODIUM 138.4 mmol/L (134.5-145)
[2022-09-06] MEDS: BUMEX PO SCH (05:30)
[2022-09-06] MEDS: PROTONIX PO SCH (05:31)
[2022-09-06] MEDS: HUMULIN R SUBCUT PRN ×2 (05:42→11:27)
[2022-09-06] MEDS: CALCIUM 500 + VIT D 5 MCG (200 IU) TABLET PO SCH ×2 (08:38→20:15)
[2022-09-06] MEDS: FERROUS SULFATE PO SCH (08:40)
[2022-09-06] MEDS: ASPIRIN EC PO SCH (08:41)
[2022-09-06] MEDS: LOPRESSOR PO SCH ×2 (08:41→20:15)
[2022-09-06] MEDS: ULORIC PO SCH (08:41)
[2022-09-06] MEDS: MULTIVITAMIN TABLET PO SCH (08:42)
[2022-09-06] MEDS: ONGLYZA PO SCH (08:42)
[2022-09-06] MEDS: ZESTRIL PO SCH (08:43)
[2022-09-06] MEDS: MICRO-K CAP PO SCH (08:43)
[2022-09-06] MEDS: ELIQUIS PO SCH ×2 (08:49→20:17)
[2022-09-06] MEDS: NON-FORMULARY MEDICATION (Magnesium 100 mg Tablet) PO SCH ×2 (08:52→20:17)
[2022-09-06] MEDS: [UNRECOGNIZED DRUG - OTHER] PO SCH (08:53)
[2022-09-06] MEDS: CYANOCOBALAMIN 2000 MCG PO SCH (08:53)
[2022-09-06] MEDS: ROCEPHIN 1 GM/50 ML D5W 1 GM/50 ML BAG IV SCH (10:01)
--- NOTE | 2022-09-06 11:13 | DI ---
EXAM: CHEST TWO-VIEW HISTORY: Short of breath COMPARISON: CT scan September 03 FINDINGS: PA and lateral views the chest were obtained. Hyperinflation increase in AP diameter is n oted. There is mild residual of the previously noted dense consolidation in the left lung compared t o CT scan September 03 2022 however this has improved. Patchy infiltrates in the right lower lobe are im proved. Cardiac silhouette is enlarged. Wires are present from median sternotomy. 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 Vascular calcifications present in the aortic arch. IMPRESSION: Mild to moderate residual left upper lobe of previous noted dense consolidation describe d 09/03/2022. Only minimal residual of the patchy infiltrate right lower lobe is noted.
[2022-09-06] MEDS ORDERED: DOXY-100 100 MG in SODIUM CHLORIDE 100ML 100 ML IV ONE (11:30)
[2022-09-06] MEDS: DOXY-100 100 MG in SODIUM CHLORIDE 100ML 100 ML IV SCH (11:39)
[2022-09-06] MEDS: LIPITOR PO SCH (16:48)
[2022-09-06] MEDS ORDERED: OCEAN NASAL SPRAY NAS PRN (16:53)
[2022-09-07 05:00] LABS: BASOPHILS % (AUTO) 0.3 % (0.0-3.0); EOSINOPHILS # (AUTO) 0.3 K/ul (0.0-0.7); HEMATOCRIT 32.2 % (42.0-52.0); HEMOGLOBIN 10.5 g/dl (14.0-18.0); IMMATURE GRANULOCYTE # (AUTO) 0.1 (0.0-1.0); IMMATURE GRANULOCYTE % (AUTO) 0.5 % (0.0-5.0); LYMPHOCYTES # (AUTO) 9.4 K/uL (0.60-3.4); MEAN CORPUSCULAR HEMOGLOBIN 32.1 pg (27.0-31.0); MEAN CORPUSCULAR HGB CONC 32.6 (31.8-35.4); MEAN CORPUSCULAR VOLUME 98.5 fl (80.0-94.0); MONOCYTES # (AUTO) 0.7 K/uL (0.4-2.0); MONOCYTES % (AUTO) 5.3 (0-10); NEUTROPHILS # (AUTO) 2.8 K/ul (2.0-6.9); NEUTROPHILS % (AUTO) 20.9 % (42.2-75.2); PLATELET COUNT 160 10^3/uL (140-440); RDW COEFFICIENT OF VARIATION 14.3 % (11.6-14.8); RED BLOOD COUNT 3.27 10^6/ul (4.70-6.10); WHITE BLOOD COUNT 13.19 K/ul (4.2-10.2)
[2022-09-07] MEDS: ATROVENT 0.02% NEB NEB SCH ×2 (05:15→11:00)
[2022-09-07] MEDS: XOPENEX 1.25 MG NEB SCH ×2 (05:15→11:00)
[2022-09-07 05:16] LABS: ALANINE AMINOTRANSFERASE 34.6 U/L (0-50); ALBUMIN 3.69 g/dL (3.5-5.0); ALKALINE PHOSPHATASE 84.7 U/L (56-119); ASPARTATE AMINO TRANSFERASE 40.4 U/L (17-59); BILIRUBIN,TOTAL 0.69 mg/dL (0.2-1.3); BLOOD UREA NITROGEN 45.3 mg/dL (9-20); CALCIUM 9.11 mg/dL (8.4-10.2); CARBON DIOXIDE 23.8 mmol/L (22-30.0); CHLORIDE 107.4 mmol/L (98-107); CREATININE 1.91 mg/dL (0.60-1.10); GLUCOSE 151.8 mg/dL (74-106); POTASSIUM 3.52 mmol/L (3.5-5.1); SODIUM 138.6 mmol/L (134.5-145); TOTAL PROTEIN 6.26 g/dL (6.3-8.2)
[2022-09-07] MEDS: BUMEX PO SCH (05:44)
[2022-09-07] MEDS: PROTONIX PO SCH (05:44)
[2022-09-07] MEDS: MULTIVITAMIN TABLET PO SCH (08:08)
[2022-09-07] MEDS: MICRO-K CAP PO SCH (08:08)
[2022-09-07] MEDS: ULORIC PO SCH (08:08)
[2022-09-07] MEDS: CALCIUM 500 + VIT D 5 MCG (200 IU) TABLET PO SCH (08:08)
[2022-09-07] MEDS: LOPRESSOR PO SCH (08:09)
[2022-09-07] MEDS: FERROUS SULFATE PO SCH (08:09)
[2022-09-07] MEDS: ZESTRIL PO SCH (08:09)
[2022-09-07] MEDS: ONGLYZA PO SCH (08:09)
[2022-09-07] MEDS: ELIQUIS PO SCH (08:10)
[2022-09-07] MEDS: ROCEPHIN 1 GM/50 ML D5W 1 GM/50 ML BAG IV SCH (08:16)
[2022-09-07] MEDS: ASPIRIN EC PO SCH (08:19)
[2022-09-07] MEDS: CYANOCOBALAMIN 2000 MCG PO SCH (08:27)
[2022-09-07] MEDS: [UNRECOGNIZED DRUG - OTHER] PO SCH (08:27)
[2022-09-07] MEDS: NON-FORMULARY MEDICATION (Magnesium 100 mg Tablet) PO SCH (08:28)
[2022-09-07] MEDS: HUMULIN R SUBCUT PRN (11:18)
[2022-09-07 15:20] VITALS: BP 124/60; TEMP 97.4
== END 2022-09-07 15:15 | disposition home or self-care (01) | DRG 193 ==
LOC: ED 04:30 → MEDSURG A 06:38
PROVIDERS: ADMIT Family Medicine; ATTEND Family Medicine
DX: Z85.6 Personal history of leukemia; E11.22 Type 2 diabetes mellitus with diabetic chronic kidney disease; Z79.84 Long term (current) use of oral hypoglycemic drugs; J96.01 Acute respiratory failure with hypoxia; R06.02 Shortness of breath; I25.10 Atherosclerotic heart disease of native coronary artery without angina pectoris; E87.6 Hypokalemia; N17.9 Acute kidney failure, unspecified; R60.0 Localized edema; R53.1 Weakness; I13.0 Hypertensive heart and chronic kidney disease with heart failure and stage 1 through stage 4 chronic kidney disease, or unspecified chronic kidney disease; I48.91 Unspecified atrial fibrillation; Z79.899 Other long term (current) drug therapy; E78.5 Hyperlipidemia, unspecified; J18.9 Pneumonia, unspecified organism; K21.9 Gastro-esophageal reflux disease without esophagitis; I67.89 Other cerebrovascular disease; N18.30 Chronic kidney disease, stage 3 unspecified; M19.90 Unspecified osteoarthritis, unspecified site; Z85.46 Personal history of malignant neoplasm of prostate; Z51.81 Encounter for therapeutic drug level monitoring; I50.23 Acute on chronic systolic (congestive) heart failure; Z20.822 Contact with and (suspected) exposure to COVID-19; R26.2 Difficulty in walking, not elsewhere classified; Z79.82 Long term (current) use of aspirin; Z79.01 Long term (current) use of anticoagulants

== ENCOUNTER 2024-01-13 15:55 | Inpatient (IN) ==
--- NOTE | 2024-01-13 17:56 | DI ---
EXAM: SINGLE VIEW CHEST XRAY. Date: 01/13/2024 Comparison: 09/06/2022 History: Shortness of breath Findings: A sternotomy and cardiac valve replacement are again noted. No acute osseous abnormality. The lungs are clear . The cardiac silhouette is within normal limits. The pulmonary vasculature is w ithin normal limits. Impresson: No acute intrathoracic findings.
[2024-01-13 18:04] VITALS: BMI 33.6
[2024-01-13 18:23] LABS: BILIRUBIN,URINE Negative (NEGATIVE); CLARITY,URINE Clear (CLEAR); COLOR,URINE Yellow (YELLOW); KETONES,URINE Negative (NEGATIVE); LEUKOCYTE ESTERASE ,URINE Negative (NEGATIVE); NITRITE,URINE Negative (NEGATIVE); PH,URINE 5.5 (5-9); PROTEIN,URINE Trace (NEGATIVE); URINE, BLOOD Negative (NEGATIVE); UROBILINOGEN,URINE 0.2 (0.2)
[2024-01-13 18:29] LABS: GLUCOSE, URINE (UA) 3+ (NEGATIVE)
[2024-01-13 18:30] LABS: URINE RBC, MICROSCOPIC 0-2 (0-2); URINE WBC, MICROSCOPIC 0-2 (0-2)
[2024-01-13] MEDS ORDERED: MYLICON PO PRN (18:42)
[2024-01-13] MEDS ORDERED: IMODIUM PO PRN (18:45)
--- NOTE | 2024-01-13 18:51 | PCM ---
Date of Service Date Seen by Provider: 01/13/24 Admit Day/Time Admission Date: 01/13/24 Reason for Admission Chief Complaint: CVA VS TIA Hospital Provider Hospital Provider[facility] PAT[facility] Primary Care Physician Primary Care Physician: GABRIELA ALDRIDGE History of Present Illness History of Present Illness: 88 yo male came to [facility] from [facility] for swingbed program following what was thought to be weakness d/t starting gabapentin. Gabapentin was stopped and symptoms improved. During stay of swingbed, patient had intermittent episodes of worsening weakness and family determined patient needed to be d/c to SNF. Today, patient developed L upper arm weakness, drink was running out of right side of his mouth, unable to follow some commands, and unable to stand.CT scan obtained and did not show acute findings. WBC count has slowly increased over course of stay. He has not showed any signs of infection. He does have pmh of CLL. He was admitted to med/surg observation for further evaluation. 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) Aortic stenosis I35.0 - Nonrheumatic aortic (valve) stenosis (ICD-10) Cholelithiasis K80.20 - Calculus of gallbladder without cholecystitis without obstruction (ICD-10) Congestive heart failure (CHF) I50.9 - Heart failure, unspecified (ICD-10) Vertigo R42 - Dizziness and giddiness (ICD-10) Gastroesophageal reflux disease K21.9 - Gastro-esophageal reflux disease without esophagitis (ICD-10) Hyperuricemia E79.0 - Hyperuricemia without signs of inflammatory arthritis and tophaceous disease (ICD-10) Prostate CA C61 - Malignant neoplasm of prostate (ICD-10) Hyperlipidemia E78.5 - Hyperlipidemia, unspecified (ICD-10) Valvular heart disease I38 - Endocarditis, valve unspecified (ICD-10) Anemia D64.9 - Anemia, unspecified (ICD-10) CAD (coronary artery disease) I25.10 - Atherosclerotic heart disease of [place] coronary artery without angina pectoris (ICD-10) Afib I48.91 - Unspecified atrial fibrillation (ICD-10) Cancer leukemia C80.1 - Malignant (primary) neoplasm, unspecified (ICD-10) Chronic kidney disease (CKD) N18.9 - Chronic kidney disease, unspecified (ICD-10) Diabetes E11.9 - Type 2 diabetes mellitus without complications (ICD-10) Hypertension I10 - Essential (primary) hypertension (ICD-10) Surgical History History of knee replacement, total Z96.659 - Presence of unspecified artificial knee joint (ICD-10) H/O aortic valve repair Z98.890 - Other specified postprocedural states (ICD-10) Z86.79 - Personal history of other diseases of the circulatory system (ICD- 10) Family History Mother Cancer FATHER Cancer BROTHER Cancer Social History Smoking and tobacco status: Never smoker Substance use type: does not use Allergies Allergies Allergy/AdvReac Type Severity Reaction Status Date / Time gabapentin AdvReac Verified 12/29/23 05:44 Sulfa (Sulfonamide AdvReac Rash Verified 09/03/22 06:35 Antibiotics) Current Medications Home Medications bumetanide 1 mg tablet 1 mg PO QDAC 01/27/13 [History Confirmed 01/13/24 Last Taken 01/13/24 06:00 1 mg] cyanocobalamin (vitamin B-12) 2,000 mcg tablet,extended release (Vitamin B-12 ER) 2,000 mcg PO DAILY 01/27/13 [History Confirmed 01/13/24 Last Taken 01/27/13 09:00] docusate sodium 100 mg capsule 100 mg PO BID PRN Constipation 01/27/13 [History Confirmed 01/13/24 Last Taken 01/27/13] febuxostat 40 mg tablet (Uloric) 80 mg PO DAILY 01/27/13 [History Confirmed 01/13/24 Last Taken 01/13/24 08:30 80 mg] multivitamin with minerals (Multiple Vitamin-Minerals tablet) 1 ea PO BID 01/27/13 [History Confirmed 01/13/24 Last Taken 01/27/13 09:00] lisinopril 10 mg tablet 40 mg PO DAILY 09/01/17 [History Confirmed 01/13/24 Last Taken 01/13/24 08:30 40 mg] atorvastatin 40 mg tablet 80 mg PO QPM 03/29/19 [History Confirmed 01/13/24 Last Taken 01/12/24 16:50 80 mg] metoprolol tartrate 25 mg tablet 25 mg PO BID 03/29/19 [History Confirmed 01/13/24 Last Taken Unknown] saxagliptin 2.5 mg tablet (Onglyza) 2.5 mg PO DAILY 03/29/19 [History Confirmed 01/13/24 Last Taken Unknown] apixaban 2.5 mg tablet (Eliquis) 2.5 mg PO BID 09/03/22 [History Confirmed 0 01/13/24 Last Taken 01/13/24 08:30 2.5 mg] aspirin 81 mg tablet,delayed release 81 mg PO DAILY 09/03/22 [History Confirmed 12/29/23 Last Taken Unknown] calcium 500 mg tablet 500 mg PO BID 09/03/22 [History Confirmed 01/13/24 Last Taken Unknown] ferrous sulfate 325 mg (65 mg iron) tablet (Iron (ferrous sulfate)) 325 mg PO DAILY 09/03/22 [History Confirmed 01/13/24 Last Taken 01/13/24 08:30 325 mg] magnesium 100 mg tablet 250 mg PO DAILY 09/03/22 [History Confirmed 01/13/24 Last Taken 01/13/24 08:30 250 mg] pantoprazole 40 mg tablet,delayed release 40 mg PO DAILY 09/03/22 [History Confirmed 01/13/24 Last Taken 01/13/24 05:30 40 mg] acetaminophen 325 mg capsule (Tylenol) 325 mg PO Q4HR PRN Pain, Moderate #120 caps 09/07/22 [Rx Confirmed 01/13/24 Last Taken 01/12/24 08:30 325 mg] potassium chloride 10 mEq tablet,extended release (K-Tab) 10 meq PO DAILY #30 tabs 09/07/22 [Rx Confirmed 01/13/24 Last Taken 01/13/24 08:30 10 mEq] amlodipine 5 mg tablet 5 mg PO BEDTIME 12/29/23 [History Confirmed 01/13/24 Last Taken 01/12/24 20:40 5 mg] azelastine 137 mcg-fluticasone 50 mcg/spray nasal spray (Dymista) 1 spray intranasal DAILY 12/29/23 [History Confirmed 01/13/24 Last Taken Unknown] dapagliflozin propanediol 10 mg tablet (Farxiga) 10 mg PO DAILY 12/29/23 [History Confirmed 01/13/24 Last Taken 01/13/24 08:30 10 mg] levocetirizine 5 mg tablet 5 mg PO DAILY 12/29/23 [History Confirmed 01/13/24 Last Taken Unknown] metoprolol succinate 50 mg tablet,extended release 24 hr 50 mg PO DAILY 01/13/24 [History Confirmed 01/13/24 Last Taken 01/13/24 08:30 50 mg] Home Acetaminophen (Acetaminophen 325 Mg Tablet) 650 mg PO Q4H PRN PRN Reason: Mild Pain Amlodipine Besylate (Amlodipine Besylate 5 Mg Tablet) 5 mg PO BEDTIME [facility] Apixaban (Apixaban 5 Mg Tab) 2.5 mg PO BID [facility] Atorvastatin Calcium (Atorvastatin Calcium 20 Mg Tablet) 80 mg PO QPM [facility] Bumetanide (Bumetanide 1 Mg Tablet) 1 mg PO QDAC [facility] Calamine/Phenol (Menthol/Zinc Oxide 113 Gm Ointment) 1 applic TP BID [facility] Clotrimazole (Clotrimazole 15 Gm Cream) 1 applic TP BID [facility] Febuxostat (Febuxostat 40 Mg Tablet) 80 mg PO DAILY [facility] Fluoxetine HCl (Fluoxetine Hcl 20 Mg Capsule) 20 mg PO DAILY [facility] Fluoxetine HCl (Fluoxetine Hcl 20 Mg Capsule) 20 mg PO DAILY [facility] Lidocaine (Lidocaine 5% Patch) 1 patch TP DAILY [facility] Lisinopril (Lisinopril 10 Mg Tablet) 40 mg PO DAILY [facility] Loperamide HCl (Loperamide Hcl 2 Mg Tablet) 2 mg PO AFTER LOOSE STOOLS PRN PRN Reason: Diarrhea Loratadine (Loratadine 10 Mg Tablet) 10 mg PO DAILY [facility] Metoprolol Succinate (Metoprolol Succinate 50 Mg Tab.Er.24h) 50 mg PO DAILY [facility] Non-Formulary Medication (Ferrous Sulfate [Iron (Ferrous Sulfate)]) 325 mg PO DAILY [facility] Non-Formulary Medication (Magnesium) 250 mg PO DAILY [facility] Non-Formulary Medication (Dapagliflozin Propanediol [Farxiga]) 10 mg PO DAILY [facility] Pantoprazole Sodium (Pantoprazole Sodium 40 Mg Tablet.Dr) 40 mg PO DAILY [facility] Potassium Chloride (Potassium Chloride 10 Meq Capsule.Er) 10 meq PO DAILY [facility] Simethicone (Simethicone 80 Mg Tab.Chew) 80 mg PO Q6HR PRN PRN Reason: Gas Opioid Naive vs. Tolerant Does Patient Take Opioids?: No Is Patient Opioid Naive?: Yes What is Opioid Naive?: *Opioid Naive implies the patient is not already taking opioids or not chroni stefan receiving opioids on a daily basis. *PRN dosing is not "usually" associated with tolerance. *Patients are at higher risk of over-sedation and aspiration. Is Patient Opioid Tolerant?: No What is Opioid Tolerant?: *Opioid Tolerance implies less than the expected response to an opioid. *Acquired tolerance is defined by the patient taking 60mg of oral morphine daily (or equianalgesic dose of another opioid) for 1 week or more. *Often associated with chronic pain. *May take more than usual dose to achieve desired pain control. Review of Systems Constitutional: Reports No symptoms Eyes: Reports No symptoms Ears: Reports No symptoms Nose: Reports No symptoms Mouth: Reports No symptoms Throat: Reports No symptoms Cardiovascular: Reports No symptoms Respiratory: Reports No symptoms Gastrointestinal: Reports No symptoms Genitourinary: Reports No Symptoms Musculoskeletal: Reports No symptoms Endocrine: Reports No symptoms Hematology: Reports No symptoms Immunology: Reports No symptoms Neurological: Reports Weakness, Problems with walking and Other (R arm weakness, water running out of right side of mouth) Physical examination Most Recent Vital Signs: Most Recent Vital Signs Temperature 97.7 F 01/13/24 18:00 Temperature Source Temporal Artery Scan 01/13/24 18:00 Pulse Rate 87 01/13/24 18:00 Respiratory Rate 26 H 01/13/24 18:00 Blood Pressure 118/64 01/13/24 18:00 Blood Pressure Mean 82 01/13/24 18:00 Blood Pressure Left Arm 118/64 01/13/24 16:10 Blood Pressure Location Left Arm 01/13/24 18:00 Blood Pressure Position Supine 01/13/24 16:10 O2 Sat by Pulse Oximetry 97 01/13/24 18:00 Oxygen Delivery Method Room Air 01/13/24 18:00 Height 234 ft 8 in 01/13/24 16:32 Weight 5 lb 10 oz 01/13/24 16:32 Telemetry Heart Rate 86 09/07/22 07:00 Telemetry SPO2 92 L 09/05/22 07:00 Appearance: Positive No Apparent Distress Skin: Positive Warm HEENT: Positive Normocephalic and PERRLA Neck: Positive Supple and Midline Trachea Chest/Lungs: Positive Symmetrical With Equal Breath Sounds, Clear to Auscultation Bilaterally and Good Air Movement all 4 Lung Joy Heart: Positive RRR and Pulses Normal GI/: Positive Soft, Nontender and Bowel Sounds Normal Musculoskeletal: Positive Not Examined Extremities: Positive Edema (+1-2 pitting), Intact Peripheral Pulses, Stable Joints Without Laxity and Good ROM in All Joints Neurological: Positive Sensation Intact, Motor intact, Alert, Disorinted, Focal Deficit (R arm, R side neglect) and Other (weakness bilateral lower extremities) Labs This Visit Labs This Visit: Labs This Visit 01/13/24 17:54 Urine Color Yellow Urine Clarity Clear Urine pH 5.5 Ur Specific [place] 1.015 Urine Protein Trace H Urine Glucose (UA) 3+ H Urine Ketones Negative Urine Blood Negative Urine Nitrite Negative Urine Bilirubin Negative Urine Urobilinogen 0.2 Ur Leukocyte Esterase Negative Urine Microscopic RBC 0-2 Urine Microscopic WBC 0-2 Ur Squamous Epith Cells 2-5 Imaging Imaging: EXAM: CT SCAN OF HEAD WITHOUT CONTRAST. FINDINGS: There is no intra or extra-axial hemorrhage seen. No mass or shift of midline structures is seen. There is moderate cortical volume loss. There is decreased attenuation seen in the periventricular white matter consistent with chronic microvascular ischemic changes. No acute large vessel cerebrovascular accident is seen. Ventricles are prominent septum cavum pellucidum and cavum vergae are present The internal auditory canals are symmetric. The mastoids are normally pneumatized. The paranasal sinuses are normally pneumatized. The globes and orbits are symmetric and unremarkable. The calvarium is intact. The sella turcica is unremarkable. IMPRESSION: 1. Changes of aging with no acute intracranial abnormality. EXAM: SINGLE VIEW CHEST XRAY. Findings: A sternotomy and cardiac valve replacement are again noted. No acute osseous abnormality. The lungs are clear . The cardiac silhouette is within normal limits. The pulmonary vasculature is within normal limits. Impresson: No acute intrathoracic findings. Review Statement Review Statement: I have independently reviewed and interpreted the labs/EKGs/imaging that were ordered by the ER provider. I have reviewed all outside records that are available currently in our EMR including imaging/notes/labs from previous visits. Plan Plan: 1. CVA/TIA - CT head negative, MRI in am, neurochecks Q4H, telemetry, on aspirin and statin 2. CHF - chronic, stable, continue home medications, daily weight, I&O 3. Afib - not in RVR, continue home medications 4. Hypertension - chronic, continue home medications 5. CLL - WBC 19 today, monitor DVT Prophylaxis: Eliquis Time Spent: Greater than 80 minutes spent with patient, 50% of the time spent with this patient was devoted to counseling and coordination of care. [facility] minutes spent discussing advance care planning. Disposition: Admit to: Med/Surg Observation DNR Discussed Plan of Care with Dr. Mihai Talamantes. Medications Medication Orders: Medications Ordered Category Date Time Status Acetaminophen [Tylenol] Meds 01/13/24 16:50 Ordered 650 mg PO Q4H PRN Amlodipine Besylate [Norvasc] Meds 01/13/24 21:00 Ordered 5 mg PO BEDTIME Apixaban [Eliquis] Meds 01/13/24 21:00 Ordered 2.5 mg PO BID Atorvastatin Calcium [Lipitor] Meds 01/14/24 17:00 Ordered 80 mg PO QPM Bumetanide [Bumex] Meds 01/14/24 06:30 Ordered 1 mg PO QDAC Clotrimazole [Lotrimin] Meds 01/13/24 21:00 Ordered 1 applic TP BID Febuxostat [Uloric] Meds 01/14/24 09:00 Ordered 80 mg PO DAILY Fluoxetine HCl [Prozac] Meds 01/14/24 09:00 Ordered 20 mg PO DAILY Fluoxetine HCl [Prozac] Meds 01/14/24 09:00 Ordered 20 mg PO DAILY Lidocaine Patch [Lidoderm 5 % Patch] Meds 01/14/24 09:00 Ordered 1 patch TP DAILY Lisinopril [Zestril] Meds 01/14/24 09:00 Ordered 40 mg PO DAILY Loperamide HCl [Imodium] Meds 01/13/24 18:45 Ordered 2 mg PO AFTER LOOSE STOOLS PRN Loratadine [Claritin] Meds 01/14/24 09:00 Ordered 10 mg PO DAILY Menthol/Zinc Oxide [Calmoseptine Ointment] Meds 01/13/24 21:00 Ordered 1 applic TP BID Metoprolol Succinate [Toprol Xl] Meds 01/14/24 09:00 Ordered 50 mg PO DAILY Pantoprazole Sodium [Protonix] Meds 01/14/24 09:00 Ordered 40 mg PO DAILY Potassium Chloride [Micro-K Cap] Meds 01/14/24 09:00 Ordered 10 meq PO DAILY Simethicone [Mylicon] Meds 01/13/24 18:42 Ordered 80 mg PO Q6HR PRN dapagliflozin propanediol [Farxiga] Meds 01/14/24 09:00 Ordered 10 mg PO DAILY ferrous sulfate [Iron (ferrous sulfate)] Meds 01/14/24 09:00 Ordered 325 mg PO DAILY magnesium Meds 01/14/24 09:00 Ordered 250 mg PO DAILY
[2024-01-13] MEDS: TYLENOL PO PRN (20:26)
[2024-01-13] MEDS: NORVASC PO SCH (20:26)
[2024-01-13] MEDS: ELIQUIS PO SCH (20:26)
[2024-01-13] MEDS: CALMOSEPTINE OINTMENT TP SCH (20:26)
[2024-01-13] MEDS: LOTRIMIN TP SCH (20:30)
[2024-01-14] MEDS: BUMEX PO SCH (05:15)
[2024-01-14 05:34] LABS: ALBUMIN 3.17 g/dL (3.5-5.0); ALKALINE PHOSPHATASE 82.2 U/L (56-119); ASPARTATE AMINO TRANSFERASE 34.5 U/L (17-59); BILIRUBIN,TOTAL 0.76 mg/dL (0.2-1.3); BLOOD UREA NITROGEN 55.6 mg/dL (9-20); CALCIUM 8.54 mg/dL (8.4-10.2); CARBON DIOXIDE 19.9 mmol/L (22-30.0); CHLORIDE 106.2 mmol/L (98-107); CREATININE 2.04 mg/dL (0.60-1.10); GLUCOSE 166.3 mg/dL (74-106); POTASSIUM 3.28 mmol/L (3.5-5.1); SODIUM 135.6 mmol/L (134.5-145); TOTAL PROTEIN 5.58 g/dL (6.3-8.2)
[2024-01-14 05:38] LABS: BASOPHILS % (AUTO) 0.1 % (0.0-3.0); EOSINOPHILS # (AUTO) 0.1 K/ul (0.0-0.7); EOSINOPHILS % (AUTO) 0.3 % (0.0-7.0); HEMATOCRIT 30.8 % (42.0-52.0); HEMOGLOBIN 10.2 g/dl (14.0-18.0); IMMATURE GRANULOCYTE # (AUTO) 0.2 (0.0-1.0); IMMATURE GRANULOCYTE % (AUTO) 0.8 % (0.0-5.0); LYMPHOCYTES # (AUTO) 13.4 K/uL (0.60-3.4); LYMPHOCYTES % (AUTO) 68.3 (10.0-50.0); MEAN CORPUSCULAR HEMOGLOBIN 32.2 pg (27.0-31.0); MEAN CORPUSCULAR HGB CONC 33.1 (31.8-35.4); MEAN CORPUSCULAR VOLUME 97.2 fl (80.0-94.0); MONOCYTES # (AUTO) 1.2 K/uL (0.4-2.0); MONOCYTES % (AUTO) 5.9 (0-10); NEUTROPHILS # (AUTO) 4.8 K/ul (2.0-6.9); NEUTROPHILS % (AUTO) 24.6 % (42.2-75.2); PLATELET COUNT 171 10^3/uL (140-440); RDW COEFFICIENT OF VARIATION 14.3 % (11.6-14.8); RED BLOOD COUNT 3.17 10^6/ul (4.70-6.10); WHITE BLOOD COUNT 19.56 K/ul (4.2-10.2)
[2024-01-14 07:56] LABS: ABG O2 HGB 94.7 % (95-100); ABG PH 7.46 (7.35-7.45); COHb 2.4 (0.5-1.5); HCO3 22.8 (21-28); MetHb 1.3 (0-1.5); TCO2 23.8 (19-24); sO2 96.8 % (94-98); tHb 10.3 g/dl (11.7-17.4)
[2024-01-14] MEDS ORDERED: PROZAC PO SCH (09:00)
[2024-01-14] MEDS: CLARITIN PO SCH (09:26)
[2024-01-14] MEDS: NON-FORMULARY MEDICATION (Dapagliflozin Propanediol [Farxiga] 10 mg tablet) PO SCH (09:27)
[2024-01-14] MEDS: FERROUS SULFATE PO SCH (09:27)
[2024-01-14] MEDS: NON-FORMULARY MEDICATION (Magnesium 100 mg Tablet) PO SCH (09:27)
[2024-01-14] MEDS: ZESTRIL PO SCH (09:27)
[2024-01-14] MEDS: ULORIC PO SCH (09:27)
[2024-01-14] MEDS: TOPROL XL PO SCH (09:28)
[2024-01-14] MEDS: MICRO-K CAP PO SCH (09:28)
[2024-01-14] MEDS: PROZAC PO SCH (09:28)
[2024-01-14] MEDS: LIDODERM 5 % PATCH TP SCH (09:28)
[2024-01-14] MEDS: PROTONIX PO SCH (09:28)
--- NOTE | 2024-01-14 10:51 | PCM.PROG ---
Date/Time Seen Date Seen by Provider: 01/14/24 Time Seen by Provider: 08:40 Provider Provider: GEOVANI HAMILTON [facility] Chief Complaint Chief Complaint: CVA VS TIA Subjective Subjective: Patient has overall declined significantly in last 24-48 hours. He is markedly weak. He is oriented and able to answer questions appropriately but mostly keeps repeating "I am tired" and "I just want to go home." He denies any pain. Just states he doesn't feel well in general. CT head, CXR, UA negative yesterday. MRI planned for today to r/o CVA. ABG done this morning after an apneic episode resulting in his O2 sat dropping to 84%. It is also rather unremarkable. Objective Appearance: Positive Alert and Oriented x3 and Ill-Appearing Chest/Lungs: Positive Symmetrical With Equal Breath Sounds, Clear to Auscultation Bilaterally and Good Air Movement all 4 Lung Joy Heart: Positive Pulses Normal and Irregular Rhythm GI/: Positive Soft, Nontender, Bowel Sounds Normal and No Distention Neurological: Positive Sensation Intact, Motor intact, Cranial Nerves Intact and Oriented; Negative Alert (+lethargic) or Muscle Strength 5/5 in Upper and Lower Extremities Bilaterally (+generalized weakness, overall able to follow commands but very weak. ) Vital Signs Vital Signs: Vital Signs: Last 24 Hours 01/13/24 16:10 01/13/24 16:10 01/13/24 16:32 Temperature 97.7 F Temperature Source Temporal Artery Scan Pulse Rate 87 Pulse Rate [Apical] Respiratory Rate 26 H 26 H Blood Pressure Blood Pressure Mean Blood Pressure Left Arm 118/64 Blood Pressure Location Blood Pressure Position Supine O2 Sat by Pulse Oximetry 97 Oxygen Delivery Method Room Air Room Air Oxygen Flow Rate Height 5 ft 10 in 234 ft 8 in Weight 234 lb 8 oz 5 lb 10 oz Telemetry Type Telemetry Monitoring Irregular Telemetry Rate (Approximate) EKG NJ Interval EKG QRS Interval Telemetry Strip Reading 01/13/24 17:00 01/13/24 18:00 01/13/24 18:00 Temperature 97.7 F Temperature Source Temporal Artery Scan Pulse Rate 87 Pulse Rate [Apical] Respiratory Rate 26 H Blood Pressure 118/64 Blood Pressure Mean 82 Blood Pressure Left Arm Blood Pressure Location Left Arm Blood Pressure Position O2 Sat by Pulse Oximetry 97 Oxygen Delivery Method Room Air Room Air Room Air Oxygen Flow Rate Height Weight Telemetry Type Telemetry Monitoring Irregular Telemetry Rate (Approximate) EKG NJ Interval EKG QRS Interval Telemetry Strip Reading 01/13/24 18:54 01/13/24 19:00 01/13/24 20:00 Temperature Temperature Source Pulse Rate Pulse Rate [Apical] Respiratory Rate Blood Pressure Blood Pressure Mean Blood Pressure Left Arm Blood Pressure Location Blood Pressure Position O2 Sat by Pulse Oximetry Oxygen Delivery Method Room Air Room Air Oxygen Flow Rate Height Weight Telemetry Type Remote Telemetry Telemetry Monitoring Continues Irregular Telemetry Rate (Approximate) 80-90 BPM EKG NJ Interval 0.08 L EKG QRS Interval Telemetry Strip Reading atrial fib 01/13/24 20:00 01/13/24 20:55 01/13/24 21:00 Temperature 97.5 F L Temperature Source Temporal Artery Scan Pulse Rate 73 Pulse Rate [Apical] Respiratory Rate 20 Blood Pressure 127/56 L Blood Pressure Mean 79 Blood Pressure Left Arm Blood Pressure Location Left Arm Blood Pressure Position Sitting O2 Sat by Pulse Oximetry 90 L Oxygen Delivery Method Room Air Room Air Room Air Oxygen Flow Rate Height Weight Telemetry Type Telemetry Monitoring Irregular Telemetry Rate (Approximate) EKG NJ Interval EKG QRS Interval Telemetry Strip Reading 01/13/24 22:00 01/13/24 23:00 01/14/24 00:00 Temperature Temperature Source Pulse Rate Pulse Rate [Apical] Respiratory Rate Blood Pressure Blood Pressure Mean Blood Pressure Left Arm Blood Pressure Location Blood Pressure Position O2 Sat by Pulse Oximetry Oxygen Delivery Method Room Air Room Air Room Air Oxygen Flow Rate Height Weight Telemetry Type Telemetry Monitoring Irregular Telemetry Rate (Approximate) EKG NJ Interval EKG QRS Interval Telemetry Strip Reading 01/14/24 01:00 01/14/24 01:00 01/14/24 01:29 Temperature 97.5 F L Temperature Source Axillary Pulse Rate 63 Pulse Rate [Apical] Respiratory Rate 20 Blood Pressure 118/65 Blood Pressure Mean 82 Blood Pressure Left Arm Blood Pressure Location Left Arm Blood Pressure Position Supine O2 Sat by Pulse Oximetry 97 Oxygen Delivery Method Room Air Room Air Oxygen Flow Rate Height Weight Telemetry Type Remote Telemetry Telemetry Monitoring Continues Irregular Telemetry Rate (Approximate) 50-60 BPM EKG NJ Interval EKG QRS Interval 0.6 H Telemetry Strip Reading Atrial fib 01/14/24 02:00 01/14/24 03:00 01/14/24 04:00 Temperature Temperature Source Pulse Rate Pulse Rate [Apical] Respiratory Rate Blood Pressure Blood Pressure Mean Blood Pressure Left Arm Blood Pressure Location Blood Pressure Position O2 Sat by Pulse Oximetry Oxygen Delivery Method Room Air Room Air Room Air Oxygen Flow Rate Height Weight Telemetry Type Telemetry Monitoring Irregular Telemetry Rate (Approximate) EKG NJ Interval EKG QRS Interval Telemetry Strip Reading 01/14/24 05:00 01/14/24 05:12 01/14/24 05:27 Temperature 97.5 F L Temperature Source Axillary Pulse Rate 52 L Pulse Rate [Apical] Respiratory Rate 22 H Blood Pressure 103/59 L Blood Pressure Mean 73 Blood Pressure Left Arm Blood Pressure Location Left Arm Blood Pressure Position O2 Sat by Pulse Oximetry 93 L Oxygen Delivery Method Room Air Room Air Oxygen Flow Rate Height Weight 225 lb 9 oz Telemetry Type Telemetry Monitoring Irregular Telemetry Rate (Approximate) EKG NJ Interval EKG QRS Interval Telemetry Strip Reading 01/14/24 06:00 01/14/24 07:00 01/14/24 07:00 Temperature Temperature Source Pulse Rate Pulse Rate [Apical] Respiratory Rate Blood Pressure Blood Pressure Mean Blood Pressure Left Arm Blood Pressure Location Blood Pressure Position O2 Sat by Pulse Oximetry Oxygen Delivery Method Room Air Room Air Room Air Oxygen Flow Rate Height Weight Telemetry Type Telemetry Monitoring Irregular Telemetry Rate (Approximate) EKG NJ Interval EKG QRS Interval Telemetry Strip Reading 01/14/24 07:00 01/14/24 07:58 01/14/24 07:59 Temperature Temperature Source Pulse Rate Pulse Rate [Apical] 64 Respiratory Rate 20 Blood Pressure Blood Pressure Mean Blood Pressure Left Arm Blood Pressure Location Blood Pressure Position O2 Sat by Pulse Oximetry 96 Oxygen Delivery Method Nasal Cannula Nasal Cannula Oxygen Flow Rate 2 2 Height Weight Telemetry Type Remote Telemetry Telemetry Monitoring Continues Irregular Telemetry Rate (Approximate) 60-70 BPM EKG NJ Interval EKG QRS Interval 0.08 Telemetry Strip Reading AFIB WITH PVCs 01/14/24 08:00 01/14/24 09:00 01/14/24 09:51 Temperature Temperature Source Pulse Rate Pulse Rate [Apical] Respiratory Rate Blood Pressure Blood Pressure Mean Blood Pressure Left Arm Blood Pressure Location Blood Pressure Position O2 Sat by Pulse Oximetry 96 Oxygen Delivery Method Nasal Cannula Nasal Cannula Nasal Cannula Oxygen Flow Rate 2 Height Weight Telemetry Type Telemetry Monitoring Irregular Telemetry Rate (Approximate) EKG NJ Interval EKG QRS Interval Telemetry Strip Reading 01/14/24 10:00 01/14/24 10:00 Temperature 97.3 F L Temperature Source Temporal Artery Scan Pulse Rate 66 Pulse Rate [Apical] Respiratory Rate 17 Blood Pressure 117/95 H Blood Pressure Mean 102 Blood Pressure Left Arm Blood Pressure Location Left Arm Blood Pressure Position Supine O2 Sat by Pulse Oximetry 98 Oxygen Delivery Method Nasal Cannula Nasal Cannula Oxygen Flow Rate 2 Height Weight Telemetry Type Telemetry Monitoring Irregular Telemetry Rate (Approximate) EKG NJ Interval EKG QRS Interval Telemetry Strip Reading Lab Results Lab Results: Lab Results: Last 24 Hours 01/14/24 01/14/24 01/13/24 07:46 05:00 18:04 WBC 19.56 H RBC 3.17 L Hgb 10.2 L Hct 30.8 L MCV 97.2 H MCH 32.2 H MCHC 33.1 RDW Coeff of Rickie 14.3 Plt Count 171 Immature Gran % (Auto) 0.8 Neut % (Auto) 24.6 L Lymph % (Auto) 68.3 H [place] % (Auto) 5.9 Eos % (Auto) 0.3 Baso % (Auto) 0.1 Neut # (Auto) 4.8 Lymph # (Auto) 13.4 H [place] # (Auto) 1.2 Eos # (Auto) 0.1 Baso # (Auto) 0.0 Immature Gran # (Auto) 0.2 Puncture Site R brach Base Excess -1.0 O2 Saturation 96.8 ABG pH 7.46 H ABG pCO2 32.0 L ABG pO2 84.0 L ABG HCO3 22.8 ABG Total CO2 23.8 Hemoglobin 1.3 Oxyhemoglobin 94.7 L Carboxyhemoglobin 2.4 H Total Hemoglobin 10.3 L O2 Delivery Device Cannula Oxygen Liter Flow 2.00 Sodium 135.6 Potassium 3.28 L Chloride 106.2 Carbon Dioxide 19.9 L Anion Gap 12.78 BUN 55.6 H Creatinine 2.04 H Estimated GFR (MDRD) 31.00 BUN/Creatinine Ratio 27.25 Glucose 166.3 H Calcium 8.54 Total Bilirubin 0.76 AST 34.5 ALT 28.0 Alkaline Phosphatase 82.2 Total Protein 5.58 L Albumin 3.17 L Globulin 2.41 Albumin/Globulin Ratio 1.31 Procalcitonin 0.20 H Urine Color Urine Clarity Urine pH Ur Specific [place] Urine Protein Urine Glucose (UA) Urine Ketones Urine Blood Urine Nitrite Urine Bilirubin Urine Urobilinogen Ur Leukocyte Esterase Urine Microscopic RBC Urine Microscopic WBC Ur Squamous Epith Cells 01/13/24 17:54 WBC RBC Hgb Hct MCV MCH MCHC RDW Coeff of Rickie Plt Count Immature Gran % (Auto) Neut % (Auto) Lymph % (Auto) [place] % (Auto) Eos % (Auto) Baso % (Auto) Neut # (Auto) Lymph # (Auto) [place] # (Auto) Eos # (Auto) Baso # (Auto) Immature Gran # (Auto) Puncture Site Base Excess O2 Saturation ABG pH ABG pCO2 ABG pO2 ABG HCO3 ABG Total CO2 Hemoglobin Oxyhemoglobin Carboxyhemoglobin Total Hemoglobin O2 Delivery Device Oxygen Liter Flow Sodium Potassium Chloride Carbon Dioxide Anion Gap BUN Creatinine Estimated GFR (MDRD) BUN/Creatinine Ratio Glucose Calcium Total Bilirubin AST ALT Alkaline Phosphatase Total Protein Albumin Globulin Albumin/Globulin Ratio Procalcitonin Urine Color Yellow Urine Clarity Clear Urine pH 5.5 Ur Specific [place] 1.015 Urine Protein Trace H Urine Glucose (UA) 3+ H Urine Ketones Negative Urine Blood Negative Urine Nitrite Negative Urine Bilirubin Negative Urine Urobilinogen 0.2 Ur Leukocyte Esterase Negative Urine Microscopic RBC 0-2 Urine Microscopic WBC 0-2 Ur Squamous Epith Cells 2-5 Additional Comments Additional Comments: I have independently reviewed and interpreted the labs/EKGs/imaging ordered during this hospital stay. I have reviewed outside records that are available in our EMR that pertain to medical stay including imaging/notes/labs from previous visits. Active Medications Active Medications: Medications Generic Name Dose Route Start Last Admin Trade Name Freq PRN Reason Stop Dose Admin Acetaminophen 650 mg 01/13/24 16:50 01/13/24 20:26 Acetaminophen 325 Mg Tablet PO 650 mg Q4H PRN Administration Mild Pain Amlodipine Besylate 5 mg 01/13/24 21:00 01/13/24 20:26 Amlodipine Besylate 5 Mg Tablet PO 5 mg BEDTIME MAURICIO Administration Apixaban 2.5 mg 01/13/24 21:00 01/14/24 10:08 Apixaban 5 Mg Tab PO 2.5 mg BID MAURICIO Administration Atorvastatin Calcium 80 mg 01/14/24 17:00 Atorvastatin Calcium 20 Mg Tablet PO QPM MAURICIO Bumetanide 1 mg 01/14/24 06:00 01/14/24 05:15 Bumetanide 1 Mg Tablet PO 1 mg QDAC2 MAURICIO Administration Calamine/Phenol 1 applic 01/13/24 21:00 01/14/24 09:28 Menthol/Zinc Oxide 113 Gm Ointment TP 1 applic BID MAURICIO Administration Clotrimazole 1 applic 01/13/24 21:00 01/14/24 09:29 Clotrimazole 15 Gm Cream TP 1 applic BID MAURICIO Administration Febuxostat 80 mg 01/14/24 09:00 01/14/24 10:08 Febuxostat 40 Mg Tablet PO 80 mg DAILY MAURICIO Administration Ferrous Sulfate 324 mg 01/14/24 09:00 01/14/24 10:08 Ferrous Sulfate 324 Mg Tablet. PO 324 mg DAILY MAURICIO Administration Fluoxetine HCl 20 mg 01/14/24 09:00 01/14/24 10:08 Fluoxetine Hcl 20 Mg Capsule PO 20 mg DAILY MAURICIO Administration Lidocaine 1 patch 01/14/24 09:00 01/14/24 09:28 Lidocaine 5% Patch TP 1 patch DAILY MAURICIO Administration Lisinopril 40 mg 01/14/24 09:00 01/14/24 10:09 Lisinopril 10 Mg Tablet PO Not Given DAILY MAURICIO Loperamide HCl 2 mg 01/13/24 18:45 Loperamide Hcl 2 Mg Tablet PO AFTER LOOSE STOOLS PRN Diarrhea Loratadine 10 mg 01/14/24 09:00 01/14/24 10:08 Loratadine 10 Mg Tablet PO 10 mg DAILY MAURICIO Administration Metoprolol Succinate 50 mg 01/14/24 09:00 01/14/24 10:09 Metoprolol Succinate 50 Mg Tab.Er.24h PO Not Given DAILY MAURICIO Non-Formulary Medication 250 mg 01/14/24 09:00 01/14/24 10:13 Magnesium PO 250 mg DAILY MAURICIO Administration Non-Formulary Medication 10 mg 01/14/24 09:00 01/14/24 10:13 Dapagliflozin Propanediol [Farxiga] PO 10 mg DAILY MAURICIO Administration Pantoprazole Sodium 40 mg 01/14/24 09:00 01/14/24 10:08 Pantoprazole Sodium 40 Mg Tablet. PO 40 mg DAILY MAURICIO Administration Potassium Chloride 10 meq 01/15/24 07:30 Potassium Chloride 10 Meq Capsule.Er PO DAILYWM2 MAURICIO Simethicone 80 mg 01/13/24 18:42 Simethicone 80 Mg Tab.Chew PO Q6HR PRN Gas Plan Plan: 1. CVA vs TIA - CT head negative, MRI today, neurochecks Q4H, telemetry, on a spirin, eliquis and statin. CXR, UA, ABG unremarkable. 2. CHF - chronic, stable, hold bumex in light of limited intake, daily weight, I&O 3. Afib - not in RVR, continue home medications 4. Hypertension - chronic, continue home medications 5. CLL - WBC 19 today, monitor DVT Prophylaxis: Bhavana Dispo: Will likely make inpatient today pending MRI brain w/o Update: MRI negative for acute findings. Had meeting with patient, , daughter, son in law, and primary nurse. Offered transfer vs conservative tx here. They would like to stay here to see how he does over the next 24 hours. Pt is a DNR. Review Statement Review Statement: I have personally discussed and reviewed the patient's visit/currently labs/imaging/decision making with Dr. Talamantes, my supervising attending. Greater that 50 minutes spent with patient, 50% of the time spent with this patient was devoted to counseling and coordination of care.
--- NOTE | 2024-01-14 13:01 | MRI ---
EXAMINATION: MAGNETIC RESONANCE IMAGING (MRI) OF THE BRAIN WITHOUT CONTRAST HISTORY: Stroke-like symptoms. TECHNIQUE: Multiplanar multi-weighted MRI of the brain and brainstem was performed without intravenou s contrast using the general brain protocol. Contrast: None. COMPARISON: CT head 01/13/2024 FINDINGS: Parenchyma: No acute infarct. No acute hemorrhage. No mass effect or midline shift. Craniocervical junction is normal. Chronic Change: Patchy and confluent foci of T2/FLAIR hyperintensity in the periventricular and subco rtical white matter, which are nonspecific, however likely represent moderate to severe chronic micro vascular ischemia. Small focus of susceptibility artifact in the left occipital lobe likely due to r emote microhemorrhage. Moderate generalized cortical volume loss. Midbrain atrophy. Mild bilateral hippocampal atrophy. Chronic lacunar infarcts in the right globus pallidus, left greene radiata, and left cerebellum. Ventricles/Extra-axial Spaces: Ventricles are concordant with the degree of parenchymal volume loss. Normal basal cisterns. Cavum septum pellucidum. Sella/Skull Base: Pituitary and sella are normal on noncontrast exam. Paranasal Sinuses/Mastoids: Paranasal sinuses are clear. Small bilateral mastoid effusions. Orbits: Normal. Vasculature: Normal flow voids in the carotid arteries and basilar artery. Calvarium/Scalp: Normal marrow. No soft tissue swelling. Limited Cervical Spine: Moderate degenerative changes of the atlanto-axial joint. IMPRESSION: No acute intracranial abnormality. Chronic lacunar infarcts in the right globus pallidus, left greene radiata, and left cerebellum. Moderate to severe chronic microvascular ischemic white matter changes.
[2024-01-14] MEDS: LACTATED RINGERS 1,000 ML IV SCH (15:03)
[2024-01-14] MEDS: LIPITOR PO SCH (17:06)
[2024-01-15 05:25] LABS: BASOPHILS % (AUTO) 0.2 % (0.0-3.0); EOSINOPHILS # (AUTO) 0.1 K/ul (0.0-0.7); EOSINOPHILS % (AUTO) 0.7 % (0.0-7.0); HEMATOCRIT 31.1 % (42.0-52.0); IMMATURE GRANULOCYTE # (AUTO) 0.1 (0.0-1.0); IMMATURE GRANULOCYTE % (AUTO) 0.7 % (0.0-5.0); LYMPHOCYTES # (AUTO) 12.3 K/uL (0.60-3.4); LYMPHOCYTES % (AUTO) 69.8 (10.0-50.0); MEAN CORPUSCULAR HEMOGLOBIN 31.4 pg (27.0-31.0); MEAN CORPUSCULAR HGB CONC 32.2 (31.8-35.4); MEAN CORPUSCULAR VOLUME 97.8 fl (80.0-94.0); MONOCYTES # (AUTO) 0.8 K/uL (0.4-2.0); MONOCYTES % (AUTO) 4.5 (0-10); NEUTROPHILS # (AUTO) 4.3 K/ul (2.0-6.9); NEUTROPHILS % (AUTO) 24.1 % (42.2-75.2); PLATELET COUNT 161 10^3/uL (140-440); RDW COEFFICIENT OF VARIATION 14.4 % (11.6-14.8); RED BLOOD COUNT 3.18 10^6/ul (4.70-6.10); WHITE BLOOD COUNT 17.67 K/ul (4.2-10.2)
[2024-01-15 05:40] LABS: ALANINE AMINOTRANSFERASE 30.6 U/L (0-50); ALBUMIN 3.13 g/dL (3.5-5.0); ALKALINE PHOSPHATASE 78.8 U/L (56-119); ASPARTATE AMINO TRANSFERASE 47.2 U/L (17-59); BILIRUBIN,TOTAL 0.6 mg/dL (0.2-1.3); BLOOD UREA NITROGEN 58.9 mg/dL (9-20); CALCIUM 8.56 mg/dL (8.4-10.2); CREATININE 1.99 mg/dL (0.60-1.10); GLUCOSE 132.8 mg/dL (74-106); POTASSIUM 3.47 mmol/L (3.5-5.1); SODIUM 137.8 mmol/L (134.5-145); TOTAL PROTEIN 5.57 g/dL (6.3-8.2)
--- NOTE | 2024-01-15 09:38 | PCM.PROG ---
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 He denies pain. States he is feeling better. Still very weak but overall improved. Discussed with patient and plan to get speech eval, restart therapy, try to get to the chair today. If stable over next 24-48 hours then will plan on dc to [facility] as originally planned. Objective Appearance: Positive No Apparent Distress and Alert and Oriented x3 Chest/Lungs: Positive Symmetrical With Equal Breath Sounds, Clear to Auscultation Bilaterally and Good Air Movement all 4 Lung Joy Heart: Positive Pulses Normal and Irregular Rhythm GI/: Positive Soft, Nontender, Bowel Sounds Normal and No Distention Neurological: Positive Sensation Intact, Motor intact, Cranial Nerves Intact, Alert and Oriented; Negative Muscle Strength 5/5 in Upper and Lower Extremities Bilaterally (+generalized weakness, able to follow commands but very weak. More interactive today. Much more alert. Laughing and joking with staff. ) Vital Signs Vital Signs: Vital Signs: Last 24 Hours 01/14/24 09:51 01/14/24 10:00 01/14/24 10:00 Temperature 97.3 F L Temperature Source Temporal Artery Scan Pulse Rate 66 Respiratory Rate 17 Blood Pressure 117/95 H Blood Pressure Mean 102 Blood Pressure Location Left Arm Blood Pressure Position Supine O2 Sat by Pulse Oximetry 96 98 Oxygen Delivery Method Nasal Cannula Nasal Cannula Nasal Cannula Oxygen Flow Rate 2 2 Weight Telemetry Type Telemetry Monitoring Irregular Telemetry Rate (Approximate) Telemetry SPO2 EKG QRS Interval Telemetry Strip Reading 01/14/24 11:00 01/14/24 12:00 01/14/24 12:47 Temperature Temperature Source Pulse Rate Respiratory Rate Blood Pressure Blood Pressure Mean Blood Pressure Location Blood Pressure Position O2 Sat by Pulse Oximetry Oxygen Delivery Method Nasal Cannula Nasal Cannula Oxygen Flow Rate Weight Telemetry Type Remote Telemetry Telemetry Monitoring Continues Irregular Telemetry Rate (Approximate) 60-70 BPM Telemetry SPO2 EKG QRS Interval 0.10 Telemetry Strip Reading Afib with PVCs 01/14/24 13:00 01/14/24 14:00 01/14/24 14:00 Temperature 97.3 F L Temperature Source Temporal Artery Scan Pulse Rate 71 Respiratory Rate 16 Blood Pressure 126/67 Blood Pressure Mean 86 Blood Pressure Location Left Arm Blood Pressure Position Supine O2 Sat by Pulse Oximetry 99 Oxygen Delivery Method Nasal Cannula Nasal Cannula Nasal Cannula Oxygen Flow Rate 2 Weight Telemetry Type Telemetry Monitoring Irregular Telemetry Rate (Approximate) Telemetry SPO2 EKG QRS Interval Telemetry Strip Reading 01/14/24 14:00 01/14/24 17:42 01/14/24 19:00 Temperature 97.1 F L Temperature Source Temporal Artery Scan Pulse Rate 60 Respiratory Rate 19 Blood Pressure 148/87 H Blood Pressure Mean 107 Blood Pressure Location Left Arm Blood Pressure Position Supine O2 Sat by Pulse Oximetry 98 98 Oxygen Delivery Method Nasal Cannula Room Air Oxygen Flow Rate 1.5 2 Weight Telemetry Type Remote Telemetry Telemetry Monitoring Continues Irregular Telemetry Rate (Approximate) 70-80 BPM Telemetry SPO2 EKG QRS Interval 0.08 Telemetry Strip Reading afib 01/14/24 19:15 01/14/24 20:00 01/14/24 21:16 Temperature 97.6 F Temperature Source Temporal Artery Scan Pulse Rate 67 Respiratory Rate 18 20 Blood Pressure 108/73 Blood Pressure Mean 84 Blood Pressure Location Left Arm Blood Pressure Position Supine O2 Sat by Pulse Oximetry 98 93 L Oxygen Delivery Method Nasal Cannula Nasal Cannula Nasal Cannula Oxygen Flow Rate 1 1 1 Weight Telemetry Type Telemetry Monitoring Irregular Telemetry Rate (Approximate) Telemetry SPO2 EKG QRS Interval Telemetry Strip Reading 01/15/24 01:00 01/15/24 02:00 01/15/24 05:14 Temperature 97.2 F L 97.6 F Temperature Source Temporal Artery Scan Temporal Artery Scan Pulse Rate 63 84 Respiratory Rate 20 20 Blood Pressure 109/68 118/79 Blood Pressure Mean 81 92 Blood Pressure Location Left Arm Left Arm Blood Pressure Position Supine Supine O2 Sat by Pulse Oximetry 94 L 95 Oxygen Delivery Method Nasal Cannula Nasal Cannula Oxygen Flow Rate 1 1 Weight Telemetry Type Remote Telemetry Telemetry Monitoring Continues Irregular Telemetry Rate (Approximate) 70-80 BPM Telemetry SPO2 96 EKG QRS Interval 0.04 L Telemetry Strip Reading A-FIB 01/15/24 05:14 01/15/24 05:24 01/15/24 07:00 Temperature Temperature Source Pulse Rate Respiratory Rate Blood Pressure Blood Pressure Mean Blood Pressure Location Blood Pressure Position O2 Sat by Pulse Oximetry 94 L Oxygen Delivery Method Nasal Cannula Oxygen Flow Rate 1 Weight 224 lb 3 oz Telemetry Type Remote Telemetry Telemetry Monitoring Continues Irregular Telemetry Rate (Approximate) 70-80 BPM Telemetry SPO2 EKG QRS Interval 0.08 Telemetry Strip Reading afib w/ PVCs 01/15/24 07:40 Temperature Temperature Source Pulse Rate Respiratory Rate Blood Pressure Blood Pressure Mean Blood Pressure Location Blood Pressure Position O2 Sat by Pulse Oximetry Oxygen Delivery Method Nasal Cannula Oxygen Flow Rate 1 Weight Telemetry Type Telemetry Monitoring Irregular Telemetry Rate (Approximate) Telemetry SPO2 EKG QRS Interval Telemetry Strip Reading Lab Results Lab Results: Lab Results: Last 24 Hours 01/15/24 01/14/24 05:10 05:00 WBC 17.67 H RBC 3.18 L Hgb 10.0 L Hct 31.1 L MCV 97.8 H MCH 31.4 H MCHC 32.2 RDW Coeff of Rickie 14.4 Plt Count 161 Immature Gran % (Auto) 0.7 Neut % (Auto) 24.1 L Lymph % (Auto) 69.8 H Barron % (Auto) 4.5 Eos % (Auto) 0.7 Baso % (Auto) 0.2 Neut # (Auto) 4.3 Lymph # (Auto) 12.3 H Barron # (Auto) 0.8 Eos # (Auto) 0.1 Baso # (Auto) 0.0 Immature Gran # (Auto) 0.1 Sodium 137.8 Potassium 3.47 L Chloride 108.0 H Carbon Dioxide 19.0 L Anion Gap 14.27 BUN 58.9 H Creatinine 1.99 H Estimated GFR (MDRD) 32.00 BUN/Creatinine Ratio 29.59 Glucose 132.8 H Calcium 8.56 Total Bilirubin 0.60 AST 47.2 ALT 30.6 Alkaline Phosphatase 78.8 Troponin I 0.019 Total Protein 5.57 L Albumin 3.13 L Globulin 2.44 Albumin/Globulin Ratio 1.28 Additional Comments Additional Comments: I have independently reviewed and interpreted the labs/EKGs/imaging ordered during this hospital stay. I have reviewed outside records that are available in our EMR that pertain to medical stay including imaging/notes/labs from previous visits. EXAMINATION: MAGNETIC RESONANCE IMAGING (MRI) OF THE BRAIN WITHOUT CONTRAST HISTORY: Stroke-like symptoms. TECHNIQUE: Multiplanar multi-weighted MRI of the brain and brainstem was performed without intravenous contrast using the general brain protocol. Contrast: None. COMPARISON: CT head 01/13/2024 FINDINGS: Parenchyma: No acute infarct. No acute hemorrhage. No mass effect or midline shift. Craniocervical junction is normal. Chronic Change: Patchy and confluent foci of T2/FLAIR hyperintensity in the periventricular and subcortical white matter, which are nonspecific, however likely represent moderate to severe chronic microvascular ischemia. Small focus of susceptibility artifact in the left occipital lobe likely due to remote microhemorrhage. Moderate generalized cortical volume loss. Midbrain atrophy. Mild bilateral hippocampal atrophy. Chronic lacunar infarcts in the right globus pallidus, left greene radiata, and left cerebellum. Ventricles/Extra-axial Spaces: Ventricles are concordant with the degree of parenchymal volume loss. Normal basal cisterns. Cavum septum pellucidum. Sella/Skull Base: Pituitary and sella are normal on noncontrast exam. Paranasal Sinuses/Mastoids: Paranasal sinuses are clear. Small bilateral mastoid effusions. Orbits: Normal. Vasculature: Normal flow voids in the carotid arteries and basilar artery. Calvarium/Scalp: Normal marrow. No soft tissue swelling. Limited Cervical Spine: Moderate degenerative changes of the atlanto-axial joint. IMPRESSION: No acute intracranial abnormality. Chronic lacunar infarcts in the right globus pallidus, left greene radiata, and left cerebellum. Moderate to severe chronic microvascular ischemic white matter changes. Active Medications Active Medications: Medications Generic Name Dose Route Start Last Admin Trade Name Freq PRN Reason Stop Dose Admin Acetaminophen 650 mg 01/13/24 16:50 01/13/24 20:26 Acetaminophen 325 Mg Tablet PO 650 mg Q4H PRN Administration Mild Pain Amlodipine Besylate 5 mg 01/13/24 21:00 01/14/24 20:15 Amlodipine Besylate 5 Mg Tablet PO 5 mg BEDTIME MAURICIO Administration Apixaban 2.5 mg 01/13/24 21:00 01/14/24 20:15 Apixaban 5 Mg Tab PO 2.5 mg BID MAURICIO Administration Atorvastatin Calcium 80 mg 01/14/24 17:00 01/14/24 17:06 Atorvastatin Calcium 20 Mg Tablet PO 80 mg QPM MAURICIO Administration Bumetanide 1 mg 01/14/24 06:00 01/14/24 05:15 Bumetanide 1 Mg Tablet PO 1 mg QDAC2 MAURICIO Administration Calamine/Phenol 1 applic 01/13/24 21:00 01/14/24 20:24 Menthol/Zinc Oxide 113 Gm Ointment TP 1 applic BID MAURICIO Administration Clotrimazole 1 applic 01/13/24 21:00 01/14/24 20:24 Clotrimazole 15 Gm Cream TP 1 applic BID MAURICIO Administration Febuxostat 80 mg 01/14/24 09:00 01/14/24 10:08 Febuxostat 40 Mg Tablet PO 80 mg DAILY MAURICIO Administration Ferrous Sulfate 324 mg 01/14/24 09:00 01/14/24 10:08 Ferrous Sulfate 324 Mg Tablet. PO 324 mg DAILY MAURICIO Administration Fluoxetine HCl 20 mg 01/14/24 09:00 01/14/24 10:08 Fluoxetine Hcl 20 Mg Capsule PO 20 mg DAILY MAURICIO Administration Lactated Ringer's 1,000 mls @ 75 mls/hr 01/14/24 14:30 01/15/24 03:24 Lactated Ringers IV 75 mls/hr .[id number] MAURICIO Administration Lidocaine 1 patch 01/14/24 09:00 01/14/24 09:28 Lidocaine 5% Patch TP 1 patch DAILY MAURICIO Administration Lisinopril 40 mg 01/14/24 09:00 01/14/24 10:09 Lisinopril 10 Mg Tablet PO Not Given DAILY MAURICIO Loperamide HCl 2 mg 01/13/24 18:45 Loperamide Hcl 2 Mg Tablet PO AFTER LOOSE STOOLS PRN Diarrhea Loratadine 10 mg 01/14/24 09:00 01/14/24 10:08 Loratadine 10 Mg Tablet PO 10 mg DAILY MAURICIO Administration Metoprolol Succinate 50 mg 01/14/24 09:00 01/14/24 10:09 Metoprolol Succinate 50 Mg Tab.Er.24h PO Not Given DAILY MAURICIO Non-Formulary Medication 250 mg 01/14/24 09:00 01/14/24 10:13 Magnesium PO 250 mg DAILY MAURICIO Administration Non-Formulary Medication 10 mg 01/14/24 09:00 01/14/24 10:13 Dapagliflozin Propanediol [Farxiga] PO 10 mg DAILY MAURICIO Administration Pantoprazole Sodium 40 mg 01/14/24 09:00 01/14/24 10:08 Pantoprazole Sodium 40 Mg Tablet. PO 40 mg DAILY MAURICIO Administration Potassium Chloride 10 meq 01/15/24 07:30 Potassium Chloride 10 Meq Capsule.Er PO DAILYWM2 MAURICIO Simethicone 80 mg 01/13/24 18:42 Simethicone 80 Mg Tab.Chew PO Q6HR PRN Gas Plan Plan: 1. TIA - CT head negative, MRI negative , telemetry, on aspirin, eliquis and statin. CXR, UA, ABG unremarkable. 2. CHF - chronic, stable, hold bumex in light of limited intake, daily weight, I&O 3. Afib - not in RVR, continue home medications 4. Hypertension - chronic, continue home medications 5. CLL - WBC 19 today, monitor 6. CKD - Gentle hydration today. 7. Difficulty swallowing - Likely due to weakness. NPO until ST eval. Accuchecks q6hrs while npo. DVT Prophylaxis: Eliquis Dispo: Still looking at [place] dispo once medically stable. Review Statement Review Statement: I have personally discussed and reviewed the patient's visit/currently labs/imaging/decision making with Dr. Talamantes, my supervising attending. Greater that 50 minutes spent with patient, 50% of the time spent with this patient was devoted to counseling and coordination of care.
[2024-01-15] MEDS: MICRO-K CAP PO SCH (13:17)
[2024-01-16 06:03] LABS: ALANINE AMINOTRANSFERASE 42.5 U/L (0-50); ALBUMIN 3.21 g/dL (3.5-5.0); ALKALINE PHOSPHATASE 89.6 U/L (56-119); ASPARTATE AMINO TRANSFERASE 59.8 U/L (17-59); BILIRUBIN,TOTAL 0.79 mg/dL (0.2-1.3); BLOOD UREA NITROGEN 49.4 mg/dL (9-20); CARBON DIOXIDE 22.6 mmol/L (22-30.0); CHLORIDE 108.5 mmol/L (98-107); CREATININE 1.69 mg/dL (0.60-1.10); GLUCOSE 175.6 mg/dL (74-106); POTASSIUM 3.42 mmol/L (3.5-5.1); SODIUM 140.4 mmol/L (134.5-145); TOTAL PROTEIN 5.65 g/dL (6.3-8.2)
[2024-01-16 06:25] LABS: BASOPHILS % (AUTO) 0.1 % (0.0-3.0); EOSINOPHILS # (AUTO) 0.1 K/ul (0.0-0.7); EOSINOPHILS % (AUTO) 0.6 % (0.0-7.0); HEMATOCRIT 32.8 % (42.0-52.0); HEMOGLOBIN 10.4 g/dl (14.0-18.0); LYMPHOCYTES # (AUTO) 12.9 K/uL (0.60-3.4); LYMPHOCYTES % (AUTO) 70.9 (10.0-50.0); MEAN CORPUSCULAR HEMOGLOBIN 32.1 pg (27.0-31.0); MEAN CORPUSCULAR HGB CONC 31.7 (31.8-35.4); MEAN CORPUSCULAR VOLUME 101.2 fl (80.0-94.0); MONOCYTES # (AUTO) 0.9 K/uL (0.4-2.0); MONOCYTES % (AUTO) 4.8 (0-10); NEUTROPHILS # (AUTO) 4.2 K/ul (2.0-6.9); NEUTROPHILS % (AUTO) 22.9 % (42.2-75.2); PLATELET COUNT 193 10^3/uL (140-440); RDW COEFFICIENT OF VARIATION 14.3 % (11.6-14.8); RED BLOOD COUNT 3.24 10^6/ul (4.70-6.10); WHITE BLOOD COUNT 18.17 K/ul (4.2-10.2)
[2024-01-16 06:26] LABS: IMMATURE GRANULOCYTE # (AUTO) 0.1 (0.0-1.0); IMMATURE GRANULOCYTE % (AUTO) 0.7 % (0.0-5.0)
--- NOTE | 2024-01-16 11:01 | PCM.PROG ---
Date/Time Seen Date Seen by Provider: 01/16/24 Time Seen by Provider: 09:00 Provider Provider: GEOVANI HAMILTON [facility]-C, [facility] Chief Complaint Chief Complaint: CVA VS TIA Subjective Subjective: Sitting up in bed, at bedside. Pt states he's feeling better today. 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 However therapy states he was unable to contribute at all to transferring today. Objective Appearance: Positive No Apparent Distress and Alert and Oriented x3 Chest/Lungs: Positive Symmetrical With Equal Breath Sounds, Clear to Auscultation Bilaterally and Good Air Movement all 4 Lung Joy Heart: Positive Pulses Normal and Irregular Rhythm GI/: Positive Soft, Nontender, Bowel Sounds Normal and No Distention Neurological: Positive Sensation Intact, Motor intact, Cranial Nerves Intact, Alert and Oriented; Negative Muscle Strength 5/5 in Upper and Lower Extremities Bilaterally (+generalized weakness More interactive today. Much more alert. Laughing and joking with staff. Still markedly weak. ) Vital Signs Vital Signs: Vital Signs: Last 24 Hours 01/15/24 13:00 01/15/24 13:49 01/15/24 14:00 Temperature 97.6 F Temperature Source Temporal Artery Scan Pulse Rate 74 Respiratory Rate 16 Blood Pressure 131/66 Blood Pressure Mean 87 Blood Pressure Location Left Arm Blood Pressure Position Supine O2 Sat by Pulse Oximetry 98 98 Oxygen Delivery Method Room Air Room Air Weight Telemetry Type Remote Telemetry Telemetry Monitoring Continues Irregular Telemetry Rate (Approximate) 80-90 BPM Telemetry Heart Rate Telemetry SPO2 EKG QRS Interval 0.08 Telemetry Strip Reading afib w/ pvcs 01/15/24 18:00 01/15/24 19:00 01/15/24 19:20 Temperature 97.7 F Temperature Source Temporal Artery Scan Pulse Rate 80 Respiratory Rate 16 20 Blood Pressure 126/60 Blood Pressure Mean 82 Blood Pressure Location Left Arm Blood Pressure Position Sitting O2 Sat by Pulse Oximetry 99 Oxygen Delivery Method Room Air Room Air Weight Telemetry Type Remote Telemetry Telemetry Monitoring Continues Irregular Telemetry Rate (Approximate) 90-100 BPM Telemetry Heart Rate Telemetry SPO2 93 EKG QRS Interval 0.05 L Telemetry Strip Reading A-FIB WITH PVC' S 01/15/24 21:09 01/15/24 21:57 01/16/24 01:00 Temperature 97.5 F L Temperature Source Temporal Artery Scan Pulse Rate 81 Respiratory Rate 18 Blood Pressure 113/59 L Blood Pressure Mean 77 Blood Pressure Location Left Arm Blood Pressure Position Supine O2 Sat by Pulse Oximetry 93 L 95 Oxygen Delivery Method Room Air Room Air Weight Telemetry Type Remote Telemetry Telemetry Monitoring Continues Irregular Telemetry Rate (Approximate) Telemetry Heart Rate 89 Telemetry SPO2 91 L EKG QRS Interval 0.06 Telemetry Strip Reading A-FIB WITH PVC' S 01/16/24 02:00 01/16/24 05:08 01/16/24 05:13 Temperature 97.8 F 97.8 F Temperature Source Temporal Artery Scan Temporal Artery Scan Pulse Rate 61 107 H Respiratory Rate 18 16 Blood Pressure 135/60 146/75 H Blood Pressure Mean 85 98 Blood Pressure Location Left Arm Left Arm Blood Pressure Position Supine Supine O2 Sat by Pulse Oximetry 94 L 93 L Oxygen Delivery Method Room Air Room Air Weight 231 lb 2 oz Telemetry Type Telemetry Monitoring Irregular Telemetry Rate (Approximate) Telemetry Heart Rate Telemetry SPO2 EKG QRS Interval Telemetry Strip Reading 01/16/24 05:56 01/16/24 07:00 01/16/24 09:30 Temperature Temperature Source Pulse Rate Respiratory Rate Blood Pressure Blood Pressure Mean Blood Pressure Location Blood Pressure Position O2 Sat by Pulse Oximetry 95 96 Oxygen Delivery Method Room Air Room Air Weight Telemetry Type Remote Telemetry Telemetry Monitoring Continues Irregular Telemetry Rate (Approximate) 80-90 BPM Telemetry Heart Rate Telemetry SPO2 95 EKG QRS Interval 0.08 Telemetry Strip Reading Atrial Fib with multi focal PVC's 01/16/24 10:00 Temperature 97.7 F Temperature Source Temporal Artery Scan Pulse Rate 83 Respiratory Rate 24 H Blood Pressure 111/79 Blood Pressure Mean 89 Blood Pressure Location Right Arm Blood Pressure Position Sitting O2 Sat by Pulse Oximetry 97 Oxygen Delivery Method Room Air Weight Telemetry Type Telemetry Monitoring Irregular Telemetry Rate (Approximate) Telemetry Heart Rate Telemetry SPO2 EKG QRS Interval Telemetry Strip Reading Lab Results Lab Results: Lab Results: Last 24 Hours 01/16/24 05:06 WBC 18.17 H RBC 3.24 L Hgb 10.4 L Hct 32.8 L MCV 101.2 H MCH 32.1 H MCHC 31.7 L RDW Coeff of Rickie 14.3 Plt Count 193 Immature Gran % (Auto) 0.7 Neut % (Auto) 22.9 L Lymph % (Auto) 70.9 H Clare % (Auto) 4.8 Eos % (Auto) 0.6 Baso % (Auto) 0.1 Neut # (Auto) 4.2 Lymph # (Auto) 12.9 H Clare # (Auto) 0.9 Eos # (Auto) 0.1 Baso # (Auto) 0.0 Immature Gran # (Auto) 0.1 Sodium 140.4 Potassium 3.42 L Chloride 108.5 H Carbon Dioxide 22.6 Anion Gap 12.72 BUN 49.4 H Creatinine 1.69 H Estimated GFR (MDRD) 39.00 BUN/Creatinine Ratio 29.23 Glucose 175.6 H Calcium 9.00 Total Bilirubin 0.79 AST 59.8 H ALT 42.5 Alkaline Phosphatase 89.6 Total Protein 5.65 L Albumin 3.21 L Globulin 2.44 Albumin/Globulin Ratio 1.31 Additional Comments Additional Comments: I have independently reviewed and interpreted the labs/EKGs/imaging ordered during this hospital stay. I have reviewed outside records that are available in our EMR that pertain to medical stay including imaging/notes/labs from previous visits. Active Medications Active Medications: Medications Generic Name Dose Route Start Last Admin Trade Name Freq PRN Reason Stop Dose Admin Acetaminophen 650 mg 01/13/24 16:50 01/13/24 20:26 Acetaminophen 325 Mg Tablet PO 650 mg Q4H PRN Administration Mild Pain Amlodipine Besylate 5 mg 01/13/24 21:00 01/15/24 20:02 Amlodipine Besylate 5 Mg Tablet PO 5 mg BEDTIME MAURICIO Administration Apixaban 2.5 mg 01/13/24 21:00 01/16/24 09:45 Apixaban 5 Mg Tab PO 2.5 mg BID MAURICIO Administration Atorvastatin Calcium 80 mg 01/14/24 17:00 01/15/24 16:32 Atorvastatin Calcium 20 Mg Tablet PO 80 mg QPM MAURICIO Administration Bumetanide 1 mg 01/14/24 06:00 01/14/24 05:15 Bumetanide 1 Mg Tablet PO 1 mg QDAC2 MAURICIO Administration Calamine/Phenol 1 applic 01/13/24 21:00 01/16/24 09:49 Menthol/Zinc Oxide 113 Gm Ointment TP 1 applic BID MAURICIO Administration Clotrimazole 1 applic 01/13/24 21:00 01/16/24 09:50 Clotrimazole 15 Gm Cream TP 1 applic BID MAURICIO Administration Febuxostat 80 mg 01/14/24 09:00 01/16/24 09:46 Febuxostat 40 Mg Tablet PO 80 mg DAILY MAURICIO Administration Ferrous Sulfate 324 mg 01/14/24 09:00 01/16/24 09:45 Ferrous Sulfate 324 Mg Tablet. PO 324 mg DAILY MAURICIO Administration Fluoxetine HCl 20 mg 01/14/24 09:00 01/16/24 09:46 Fluoxetine Hcl 20 Mg Capsule PO 20 mg DAILY MAURICIO Administration Lidocaine 1 patch 01/14/24 09:00 01/16/24 09:47 Lidocaine 5% Patch TP 1 patch DAILY MAURICIO Administration Lisinopril 40 mg 01/14/24 09:00 01/16/24 09:44 Lisinopril 10 Mg Tablet PO 40 mg DAILY MAURICIO Administration Loperamide HCl 2 mg 01/13/24 18:45 Loperamide Hcl 2 Mg Tablet PO AFTER LOOSE STOOLS PRN Diarrhea Loratadine 10 mg 01/14/24 09:00 01/16/24 09:44 Loratadine 10 Mg Tablet PO 10 mg DAILY MAURICIO Administration Metoprolol Succinate 50 mg 01/14/24 09:00 01/16/24 09:45 Metoprolol Succinate 50 Mg Tab.Er.24h PO 50 mg DAILY MAURICIO Administration Non-Formulary Medication 250 mg 01/14/24 09:00 01/16/24 09:46 Magnesium PO 250 mg DAILY MAURICIO Administration Non-Formulary Medication 10 mg 01/14/24 09:00 01/16/24 09:48 Dapagliflozin Propanediol [Farxiga] PO 10 mg DAILY MAURICIO Administration Pantoprazole Sodium 40 mg 01/14/24 09:00 01/16/24 09:45 Pantoprazole Sodium 40 Mg Tablet. PO 40 mg DAILY MAURICIO Administration Potassium Chloride 10 meq 01/15/24 07:30 01/16/24 09:45 Potassium Chloride 10 Meq Capsule.Er PO 10 meq DAILYWM2 MAURICIO Administration Simethicone 80 mg 01/13/24 18:42 Simethicone 80 Mg Tab.Chew PO Q6HR PRN Gas Plan Plan: 1. TIA - CT head negative, MRI negative , telemetry, on aspirin, eliquis and statin. CXR, UA, ABG unremarkable. 2. CHF - chronic, stable, hold bumex in light of limited intake, daily weight, I&O 3. Afib - not in RVR, continue home medications 4. Hypertension - chronic, continue home medications 5. CLL - Chronic, stable, monitor 6. CKD - At baseline. Stop fluids. 7. Difficulty swallowing - Likely due to weakness. Evaluated by yesterday, diet restarted DVT Prophylaxis: Bhavana Lopezo: Still looking at [place] dispo once medically stable. Review Statement Review Statement: I have personally discussed and reviewed the patient's visit/currently labs/imaging/decision making with Dr. Talamantes, my supervising attending. Greater that 50 minutes spent with patient, 50% of the time spent with this patient was devoted to counseling and coordination of care.
--- NOTE | 2024-01-16 11:03 | RS.PTINEVL ---
Subjective Patient information Date of Evaluation: 01/16/24 Date of Arrival on Unit: 01/13/24 Admitted From:: In-House Transfer (from Swing Bed to Acute on 01/13/24) Usual Living Arrangement: With Spouse Living Arrangement Comments: LIVES WITH Home Environment: House, Stairs (few) and Rail Medical History Comments:: HTN, diabetes, CHF, Arthritis, Cancer (CCL, Prostate), AFib, chronic kidney disease, GERD, BPH LATEX ALLERGY?: No Surgical History: Knee Replacement (bilateral) Surgical History Comments:: aortic valve replacement, prostatectomy Medications: see MAR Subjective Information/ Patient Comments:: Mr. Crawford is agreeable to get up on the side of the bed. States his sheets are soaked. Agrees to get up to the chair so that his bed can be changed. He was in Swing Bed for therapy with the goal of getting him back home. After some time, he demonstrated the need for more therapy before returning home and when that was explained to him, he regressed with therapy. He then was transferred to Acute status on 01/13/24 due to regression of medical status. He has since been more alert and improving medically. Orders were placed to restart therapy. Level of function Prior to this admission, the patient could do the following:: Independent Selfcare, Independent Ambulation (using cane) and Participated in Social Activities Outside home Abilities prior to this admission: During Swing Bed stay on 01/11/24 he was able to transfer with min assistance of 1 and ambulate 70 feet with assist of 2 with a rolling walking. Current Level of Function: Dependent Current Equipment Used at Home: Rollling walker, cane Interventions Objective Patient Orientation: Person, Place, Time and Situation Observation: Demonstrates swelling in both legs, socks leave light indention at the ankles Range of Motion ROM Right Upper Extremity AROM: Moderate limitation (states right UE with arthritis) Left Upper Extremity AROM: Slight limitation Right Lower Extremity AROM: Slight limitation Left Lower Extremity AROM: Slight limitation Comments:: Demonstrates bilateral limitation of knee extension Muscle Strength Muscle Strength Comments:: Bilateral LE strength 3+/5 throughout. Sensation Sensation Comments: Reports intact sensation to light touch throughout bilateral LE's. Balance Sitting Balance and Reactions Static Sitting Balance: Fair Dynamic Sitting Balance: Fair (-) Sitting Equilibrium Reactions: Delayed Left and Delayed Right Sitting Protective Reactions: Delayed Left and Delayed Right Standing Balance and Reactions Static Standing Balance: Poor Dynamic Standing Balance: Poor Standing Equilibrium Reactions: Delayed Left and Delayed Right Standing Protective Reactions: Delayed Left and Delayed Right Functional Mobility Bed Mobility Scooting: Max Assist, 2 person assist, Verbal Cues and Tactile Cues Supine to Sit: Max Assist, 2 person assist, Verbal Cues and Tactile Cues Comments:: Pt does not attempt to help with bed mobility until given verbal cues to reach for bed rail or use hands on bed to scoot. Transfers Sit to Stand: Mod Assist, Max Assist, 2 person assist, Verbal Cues and Tactile Cues Stand to Sit: Mod Assist, Max Assist, 2 person assist, Verbal Cues and Tactile Cues Stand Pivot Transfers: Mod Assist, Max Assist, 2 person assist, Verbal Cues and Tactile Cues Comments:: Pt is able to take his weight on his legs. Requires continuous verbal cues to encourage him to stand up tall, but he does not stand up fully. Requires mod- max X 2 assistance to maintain standing position at walker. Patient demonstrates difficulty advancing feet to take small steps to the chair at immediate bedside to his right. Pt unable to turn fully before sitting down. Assistance required to pull him further around before he sat down, to avoid him sitting on the left arm of the chair. Safety Awareness Safety Awareness: Poor VINEET INDEX SCORE: NA Treatment time Time with patient Length of Evaluation: 24 mins Total treatment time: 27 Assessment Assessment Problem List:: Decreased level of function, Requires training/education, Decreased safety/Risk of falls and Weakness Rehab Potential: Good Further Therapy Indicated?: Yes Candidate for Swing Bed for Therapy Services?: No Comments: Based on patient's regression during Swing Bed and his current status, he presents to need LTC. Evaluation Complexity: HISTORY: High, EXAM OF BODY SYSTEMS: High, CLINICAL PRESENTATION: High and CLINICAL DECISION MAKING: High Patient's Goal(s): His goal is to walk again. Short Term Goals GOAL #1: Pt to roll and scoot in bed with mod X 1. Goal to be met by: 01/20/24 GOAL #2: Supine to sit with mod X 1. Goal to be met by: 01/20/24 GOAL #3: Pt to perform sit <> stand transfers with mod A of 2. Goal to be met by: 01/20/24 GOAL #4: Pt to perform bed <> chair transfer with mod A of 2. Goal to be met by: 01/20/24 Behavioral Scientist Goals GOAL #1: Transfer sup to/from sit to/from stand min x 1 Goal to be met by: 01/23/24 GOAL #2: Pt to perform bed <> chair transfers with mod assist of 1. Goal to be met by: 01/23/24 GOAL #3: Pt to amb 10 ft with rolling walker and mod assist of 2. Goal to be met by: 01/23/24 Plan Plan of Care: Therapeutic EX, Neuromuscular Re-Educ and Therapeutic Activity Frequency of Treatment: 1-2 X day, as tolerated Duration of Treatment: 1 Week Anticipated Discharge Destination: [facility] Treatment Diagnosis (ICD 10 Codes): Z91.81 at risk for falls, Z74.0 Reduced mobility, M62.81 General weakness, R26.81 impaired balance Has the Physician been added for Co-signature?: Yes
--- NOTE | 2024-01-16 16:12 | RS.OTINEVL ---
Subjective Patient information Date of Evaluation: 01/16/24 Date of Arrival on Unit: 01/13/24 Admitted From:: In-House Transfer (from Swing Bed to Acute on 01/13/24) Diagnosis: Impaired Gait, Weakness, LUE Weakness and impaired coordination PRECAUTIONS: fall risk, Impaired coordination Usual Living Arrangement: With Spouse Living Arrangement Comments: LIVES WITH Home Environment: House, Stairs (few) and Rail Medical History: Hypertension, Diabetes, CHF, Arthritis and Cancer (CLL, Prostate CA) Medical History Comments:: HTN, diabetes, CHF, Arthritis, Cancer (CCL, Prostate), AFib, chronic kidney disease, GERD, BPH LATEX ALLERGY?: No Surgical History: Knee Replacement (bilateral) Surgical History Comments:: aortic valve replacement, prostatectomy Medications: see MAR Subjective Information/ Patient Comments:: "I am feeling pretty good." Level of function Prior to this admission, the patient could do the following:: Independent Selfcare, Independent Ambulation and Participated in Social Activities Outside home Current Level of Function: Dependent Current Equipment Used at Home: Rollling walker, cane Pain Assessment Pain Side: right Pain Location Body Site: Shoulder Pain Aggravating Factors: Changing Position and Exercise/Activity Pain Alleviating Factors: Medication Interventions Objective Patient Orientation: Person, Place and Situation Observation: Pt has decreased AROM and coordination of LUE and RUE shoulder. Interventions ROM Right Upper Extremity AROM: Marked limitation Left Upper Extremity AROM: Moderate limitation Strength Right Upper Extremity: Mild Weakness Left Upper Extremity: Moderate Weakness Sensation Right Upper Extremity: Intact/Normal Left Upper Extremity: Impaired ADL Skills Self Feeding Self Feeding: CGA Grooming Grooming: Mod Assist, Verbal Cues and Tactile Cues Grooming Set-up: Sitting Bathing Bathing UE: Max Assist and 2 person assist Bathing LE: Max Assist and 2 person assist Dressing Dressing UE: Max Assist and 2 person assist Dressing LE: Max Assist and 2 person assist Toilet Management Toilet Hygiene: Max Assist and 2 person assist Toilet Clothing Management: Max Assist and 2 person assist Functional Mobility Transfers Sit to Stand: Max Assist, 2 person assist, Verbal Cues and Tactile Cues Ambulation Weight Bearing Status: FWB Assistance needed with Ambulation: Max Assist and 2 person assist Safety Awareness Safety Awareness: Poor VINEET INDEX SCORE: . Additional Treatment Performed Additional units charged Neurofacilitation: 12 Time with patient Length of Evaluation: 20 Total treatment time: 32 Assessment Problem List:: Decreased level of function, Requires training/education, Decreased safety/Risk of falls, Weakness and Pain limits previous level of function Rehab Potential: Fair Further Therapy Indicated?: Yes Candidate for Swing Bed for Therapy Services?: no Evaluation Complexity: HISTORY: High, EXAM OF BODY SYSTEMS: High and CLINICAL DECISION MAKING: High Patient's Goal(s): To be able to to home. Short Term Goals Goals GOAL 1: Pt to increase to Moderate assistance with BLE dressing. Goal to be met by: 01/18/24 GOAL 2: Pt to increase to Min A for toilet transfers. Goal to be met by: 01/18/24 GOAL 3: Pt to increase dyn. std. bal. to Fair. Goal to be met by: 01/18/24 GOAL 4: Pt to be CGA with shaving in the chair. Goal to be met by: 01/18/24 Comments: sitting 2* fatigue level GOAL 5: Pt to be Min A with UB dressing. Goal to be met by: 01/18/24 GOAL 6: Pt to increase LUE strength to 4/5. Goal to be met by: 01/18/24 Senior Living Goals GOAL 1: Pt to be Min A with ADLs. Goal to be met by: 01/21/24 GOAL 2: Pt to increase dyn. std. bal. to F+. Goal to be met by: 01/21/24 GOAL 3: Pt to increase LUE strength to 4+/5. Goal to be met by: 01/21/24 Plan Plan of Care: Therapeutic EX, Neuromuscular Re-Educ, Therapeutic Activity and Self-Care/Home Management Frequency of Treatment: 1-2 X day, as tolerated Duration of Treatment: 1 Week Anticipated Discharge Destination: [facility] Treatment Diagnosis (ICD 10 Codes): Weakness R53.1, R shoulder pain M25.512, Z74.1 Need assistance with self care. Has the Physician been added for Co-signature?: Yes
[2024-01-17 05:57] LABS: HEMOGLOBIN 10.1 g/dl (14.0-18.0); MEAN CORPUSCULAR HEMOGLOBIN 31.6 pg (27.0-31.0); MEAN CORPUSCULAR HGB CONC 31.6 (31.8-35.4); PLATELET COUNT 188 10^3/uL (140-440); RDW COEFFICIENT OF VARIATION 14.5 % (11.6-14.8); WHITE BLOOD COUNT 17.24 K/ul (4.2-10.2)
[2024-01-17 06:13] LABS: ALANINE AMINOTRANSFERASE 35.6 U/L (0-50); ALBUMIN 3.11 g/dL (3.5-5.0); ALKALINE PHOSPHATASE 83.9 U/L (56-119); ASPARTATE AMINO TRANSFERASE 42.3 U/L (17-59); BILIRUBIN,TOTAL 0.83 mg/dL (0.2-1.3); BLOOD UREA NITROGEN 44.3 mg/dL (9-20); CALCIUM 9.16 mg/dL (8.4-10.2); CREATININE 1.43 mg/dL (0.60-1.10); POTASSIUM 3.21 mmol/L (3.5-5.1); SODIUM 142.3 mmol/L (134.5-145); TOTAL PROTEIN 5.6 g/dL (6.3-8.2)
[2024-01-17 06:40] LABS: ANISOCYTOSIS NOT PRESENT (NOT PRESENT)
--- NOTE | 2024-01-17 09:11 | DCSUM ---
Admission Date Admission Date: 01/13/24 Discharge Date Discharge Date: 01/17/24 Admission Diagnosis Admission Diagnosis: 1. TIA vs CVA Discharge Diagnosis Discharge Diagnosis: 1. Questionable TIA 2. CHF - chronic, stable 3. Afib 4. Hypertension 5. CLL 6. CKD 7. Difficulty swallowing Hospital Provider Hospital Provider: [facility] Physician Primary Care Physician: GABRIELA ALDRIDGE Summary of History and Physical Summary of History and Physical: 88 yo male came to [facility] from [facility] for swingbed program following what was thought to be weakness d/t starting gabapentin. Gabapentin was stopped and symptoms improved. [facility] had intermittent episodes of worsening weakness and family determined patient needed to be d/c to SNF. On 01/12 patient developed L upper arm weakness, drink was running out of right side of his mouth, unable to follow some commands, and unable to stand. CT scan obtained and did not show acute findings. WBC count has slowly increased over course of stay. He has not showed any signs of infection. He does have pmh of CLL. He was admitted to med/surg observation for further evaluation. Hospital Course Subjective: Patient's CT head, CXR, UA, and eventually MRI of brain were without acute findings. Pt continued to be very weak on Saturday 01/13. He did have an apneic episode for which he was briefly hypoxic. ABG unremarkable. Offered family transfer but they decided to wait and see if he improved while here. On 01/14 after hearing his MRI brain didn't show a stroke, he improved. He was much more alert, interactive, cutting up with staff again. However he has remained markedly weak, clinically generalized, no focal deficit. Labs and VSS have been stable. Patient has been emotionally labile. He was started on prozac. ST evaluated patient and adjusted his diet. Overall patient has been stable but extremely weak. He does not contribute when trying to transfer, have had to use teddy lift to move patient. Discussed he will require more fpc therapy and family opted to send him to [place]. Pt is reluctant but agreeable. Pt is at high risk of readmission. Appearance: Pleasant, No Apparent Distress and Alert HEENT: MMM and Supple CVS: Other (irregularly irregular ) Abdomen: Soft, Non-Tender and No Distention Respiratory: No Accessory Muscle Use Extremities: Other (+marked weakness, generalized ) Vital Signs: Most Recent Vital Signs Temperature 97.2 F L 01/17/24 05:39 Temperature Source Temporal Artery Scan 01/17/24 05:39 Pulse Rate 63 01/17/24 05:39 Respiratory Rate 16 01/17/24 05:39 Blood Pressure 141/85 H 01/17/24 05:39 Blood Pressure Mean 103 01/17/24 05:39 Blood Pressure Left Arm 118/64 01/13/24 16:10 Blood Pressure Location Left Arm 01/17/24 05:39 Blood Pressure Position Supine 01/17/24 05:39 O2 Sat by Pulse Oximetry 95 01/17/24 05:56 Oxygen Delivery Method Room Air 01/17/24 05:56 Oxygen Flow Rate 1 01/15/24 07:40 Height 5 ft 8 in 01/17/24 07:11 Weight 226 lb 8 oz 01/17/24 05:39 Telemetry Type Remote Telemetry 01/17/24 07:00 Telemetry Monitoring Continues 01/17/24 07:00 Irregular Telemetry Rate (Approximate) 80-90 BPM 01/16/24 19:00 Telemetry Heart Rate 79 01/17/24 07:00 Telemetry SPO2 93 01/17/24 07:00 EKG OH Interval 0.08 L 01/13/24 18:54 EKG QRS Interval 0.05 L 01/17/24 07:00 Telemetry Strip Reading A- Fib (Chronic) 01/17/24 07:00 Imaging: EXAM: CT SCAN OF HEAD WITHOUT CONTRAST. FINDINGS: There is no intra or extra-axial hemorrhage seen. No mass or shift of midline structures is seen. There is moderate cortical volume loss. There is decreased attenuation seen in the periventricular white matter consistent with chronic microvascular ischemic changes. No acute large vessel cerebrovascular accident is seen. Ventricles are prominent septum cavum pellucidum and cavum vergae are present The internal auditory canals are symmetric. The mastoids are normally pneumatized. The paranasal sinuses are normally pneumatized. The globes and orbits are symmetric and unremarkable. The calvarium is intact. The sella turcica is unremarkable. IMPRESSION: 1. Changes of aging with no acute intracranial abnormality. EXAM: SINGLE VIEW CHEST XRAY. Findings: A sternotomy and cardiac valve replacement are again noted. No acute osseous abnormality. The lungs are clear . The cardiac silhouette is within normal limits. The pulmonary vasculature is within normal limits. Impresson: No acute intrathoracic findings. EXAMINATION: MAGNETIC RESONANCE IMAGING (MRI) OF THE BRAIN WITHOUT CONTRAST HISTORY: Stroke-like symptoms. TECHNIQUE: Multiplanar multi-weighted MRI of the brain and brainstem was performed without intravenous contrast using the general brain protocol. Contrast: None. COMPARISON: CT head 01/13/2024 FINDINGS: Parenchyma: No acute infarct. No acute hemorrhage. No mass effect or midline shift. Craniocervical junction is normal. Chronic Change: Patchy and confluent foci of T2/FLAIR hyperintensity in the periventricular and subcortical white matter, which are nonspecific, however likely represent moderate to severe chronic microvascular ischemia. Small focus of susceptibility artifact in the left occipital lobe likely due to remote microhemorrhage. Moderate generalized cortical volume loss. Midbrain atrophy. Mild bilateral hippocampal atrophy. Chronic lacunar infarcts in the right globus pallidus, left greene radiata, and left cerebellum. Ventricles/Extra-axial Spaces: Ventricles are concordant with the degree of parenchymal volume loss. Normal basal cisterns. Cavum septum pellucidum. Sella/Skull Base: Pituitary and sella are normal on noncontrast exam. Paranasal Sinuses/Mastoids: Paranasal sinuses are clear. Small bilateral mastoid effusions. Orbits: Normal. Vasculature: Normal flow voids in the carotid arteries and basilar artery. Calvarium/Scalp: Normal marrow. No soft tissue swelling. Limited Cervical Spine: Moderate degenerative changes of the atlanto-axial joint. IMPRESSION: No acute intracranial abnormality. Chronic lacunar infarcts in the right globus pallidus, left greene radiata, and left cerebellum. Moderate to severe chronic microvascular ischemic white matter changes. Lab Results Last 24 Hours: 01/17/24 05:15 WBC 17.24 H RBC 3.20 L Hgb 10.1 L Hct 32.0 L MCV 100.0 H MCH 31.6 H MCHC 31.6 L RDW Coeff of Rickie 14.5 Plt Count 188 Neutrophils % (Manual) 29.0 L Band Neutrophils % 1.0 Lymphocytes % (Manual) 61.0 H Monocytes % (Manual) 4.0 Reactive Lymphocytes 5.0 Anisocytosis Not present Sodium 142.3 Potassium 3.21 L Chloride 113.0 H Carbon Dioxide 23.0 Anion Gap 9.51 BUN 44.3 H Creatinine 1.43 H Estimated GFR (MDRD) 47.00 BUN/Creatinine Ratio 30.97 Glucose 161.0 H Calcium 9.16 Total Bilirubin 0.83 AST 42.3 ALT 35.6 Alkaline Phosphatase 83.9 Total Protein 5.60 L Albumin 3.11 L Globulin 2.49 Albumin/Globulin Ratio 1.24 Discharge Instructions Discharge Planning: Discharge Planning > [address] Shiva Talamantes. Discharge Medications: Medications at Discharge (Home Meds & RX) Discharge Plan Discharge Discharge Orders: Discharge Patient (ONCE); Ordered 01/17/24 Ordered By: GEOVANI HAMILTON Activity Restrictions/Additional Instructions: DISCHARGE TO SNF DIET: MINCED AND MOIST REGULAR, THIN LIQUIDS. NO STRAWS PER ST EVAL ACTIVITY: FALL PRECAUTIONS, PT AND OT RECOMMENDED DX: WEAKNESS, QUESTIONABLE TIA DAILY POTASSIUM SUPPLEMENT HAS BEEN INCREASED TO 20 MEQ, RECOMMEND REPEAT BMP IN 1 WEEK PROZAC ADDED OFF LOAD BUTTOCKS. UTILIZE CALMOSEPTINE OINTMENT Patient Disposition: TRANSFER SNF Prescriptions: New fluoxetine 20 mg Capsule 20 mg PO DAILY Qty: 30 0RF menthol-zinc oxide [Calmoseptine] 0.44-20.6 % Ointment 1 applic TEETH BID Qty: 113 0RF potassium chloride 20 mEq tablet extended release 20 meq PO DAILY Qty: 30 0RF Continued bumetanide 1 MG tablet 1 mg PO QDAC febuxostat [Uloric] 40 MG tablet 80 mg PO DAILY Multiple Vitamin-Minerals 1 EACH tablet 1 ea PO BID lisinopril 10 MG tablet 40 mg PO DAILY atorvastatin 40 mg Tablet 80 mg PO QPM aspirin 81 mg Tablet,Delayed Release (Dr/Ec) 81 mg PO DAILY pantoprazole 40 mg tablet,delayed release (DR/EC) 40 mg PO DAILY ferrous sulfate [Iron (ferrous sulfate)] 325 mg (65 mg iron) Tablet 325 mg PO DAILY magnesium 100 mg Tablet 250 mg PO DAILY Eliquis 2.5 mg tablet 2.5 mg PO BID acetaminophen [Tylenol] 325 mg Capsule 325 mg PO Q4HR PRN (Reason: Pain, Moderate) Qty: 120 0RF amlodipine 5 mg tablet 5 mg PO BEDTIME dapagliflozin propanediol [Farxiga] 10 mg tablet 10 mg PO DAILY metoprolol succinate 50 mg tablet extended release 24 hr 50 mg PO DAILY Patient Comments: [NO ORIGINAL SIG] No Action potassium chloride [K-Tab] 10 mEq Tablet Extended Release 10 meq PO DAILY Qty: 30 0RF Did you review [place] SKI LIFT ATTENDANT for ALL controlled substances?: Not Applicable Discussed opioids are addictive and Narcan is available by prescription or from pharmacy.: No Condition: Fair
[2024-01-17] MEDS: K-DUR PO ONE (09:40)
[2024-01-17 10:27] VITALS: BP 134/76; PULSE 82; RESP 16; TEMP 97.7
== END 2024-01-17 11:45 | DRG 948 ==
LOC: MEDSURG B 15:55 → INTOOBSV 15:55
PROVIDERS: ADMIT Hospitalist; ATTEND Physician Assistant